=== PATIENT | female | born 1930 | race Caucasian/White ===

== ENCOUNTER 2017-09-05 01:38 | Emergency (ER) | payer MEDICARE ==
[2014-08-12 16:21] VITALS: Wt 64.4 kg
[~2017-09-05 01:38] MED LIST changes: -DOCU-416 PO; -LISI5TAB25 PO; -LOR5/325 PO; -LORA-1455 PO; -METH4TAB66 PO; -PRED-1 PO
--- NOTE | 2017-09-05 01:43 | ER Report ---
History and Physical Time Seen By MD: 01:41 HPI/ROS CHIEF COMPLAINT: right shoulder pain, right hip pain. HISTORY OF PRESENT ILLNESS: This is an 86 year old female. She has had pain in her shoulder for a couple of days now. Worsening pain with movement only. No pain when holding still. No injuries to the shoulder, no falls. No fevers or chills. No rashes. She has had pain in the joints off an on. 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 She has no other joint pain at this time. She had so much pain in the shoulder this morning that she could not get off of the toilet this morning. She denies chest pain or shortness of breath. No diarrhea or bowel problems. Allergies: Coded Allergies: Penicillins (Verified Allergy, Severe, SWELLING, 12/26/16) THROAT SWELLING Tetanus Vaccines and Toxoid (Verified Allergy, Intermediate, UNKNOWN, 12/26) influenza virus vaccine, specific (Verified Allergy, Intermediate, UNKNOWN , 12/26/16) pneumococcal vaccine (Verified Allergy, Intermediate, 12/26/16) N/V Home Meds Active Scripts Hydrocodone Bit/Acetaminophen (HYDROCODON-ACETAMINOPHEN 5-325) 1 Each Tablet, 1 EACH PO Q4H Y for PAIN, #8 TAB 0 Refills Prov:RONALD ROBLES MD 09/05/17 Methylprednisolone (METHYLPREDNISOLONE) 4 Mg Tab.ds.pk, 4 MG PO DIRECTED, #1 PACK 0 Refills Prov:RONALD ROBLES MD 09/05/17 Reported Medications Lisinopril (LISINOPRIL) 5 Mg Tablet, 5 MG PO QDAY, TAB 09/05/17 Docusate Sodium (COLACE) 100 Mg Capsule, 100 MG PO QDAY, CAPSULE 09/05/17 Cholecalciferol (Vitamin D3) (VITAMIN D3) 1,000 Unit Tablet, 1000 UNIT PO, TAB 09/10/16 Aspirin (ASPIRIN) 325 Mg Tablet, 325 MG PO DAILY, TAB 08/10/14 Levothyroxine Sodium (SYNTHROID) 50 Mcg Tablet, 50 MCG PO QDAY TAKE ONE TABLET BY MOUTH IN THE MORNING ON AN EMPTY STOMACH AT LEAST 30 MINUTES BEFORE FOOD 08/10/14 Discontinued Reported Medications [place]-3 Fatty Acids (FISH OIL) 300 Mg Capsule, 300 MG PO, CAPSULE 09/10/16 Atorvastatin Calcium (ATORVASTATIN CALCIUM) 40 Mg Tablet, 1 TAB PO QDAY, TAB TAKE ONE TABLET BY MOUTH ONCE A DAY AT BED TIME 08/10/14 Lisinopril (LISINOPRIL) 10 Mg Tablet, 10 MG PO QDAY 08/10/14 Discontinued Scripts Ondansetron (ZOFRAN ODT) 4 Mg Tab.rapdis, 4 MG PO Q6-8H Y for NAUSEA/VOMITING, # 15 TAB.KUSUM Prov:CIARA ACOSTA DO 12/26/16 Reviewed Nurses Notes: Yes Hx Smoking: No Smoking Status: Never Smoker Hx Substance Use Disorder: No Hx Alcohol Use: No Constitutional Vital Sign - Last 24 Hours 09/05/17 09/05/17 09/05/17 09/05/17 01:40 01:42 01:45 02:00 Temp 98.3 Pulse 100 Resp 18 B/P (MAP) 121/74 (90) 121/74 145/80 (101) 142/82 (102) Pulse Ox 90 O2 Delivery Room Air 09/05/17 09/05/17 09/05/17 09/05/17 02:23 02:30 02:38 02:53 Pulse 94 92 93 B/P (MAP) 145/70 (95) Pulse Ox 88 90 86 09/05/17 03:00 B/P (MAP) 142/76 (98) Physical Exam General Appearance: The patient is alert. No acute distress. Eyes: Pupils are equal, round. No pallor, injection or icterus. ENT: Mucous membranes are moist. Normal oral mucosa. Posterior oropharynx is normal. Neck: Supple and non tender. Respiratory: Lungs are clear to auscultation. Cardiovascular: Regular rate and rhythm. No murmurs, gallops or rubs. Normal capillary refill. Gastrointestinal: Abdomen is soft and non tender. Nondistended. Normal active bowel sounds. Neurological: Alert and oriented x3. No focal neurologic deficits Skin: Warm and dry. No rashes. Musculoskeletal: Right shoulder with pain with active and passive range of motion. Pain over the anterior shoulder, no pain with posterior palpation. No pain on clavicle. No pain with palpation of the humerus. Positive Neers and Phelps signs, with rotation. She has minimal pain in the right hip with movement, but is mild. Unable to reproduce pain with palpation of the hip. DIFFERENTIAL DIAGNOSIS: After history and physical exam, differential diagnosis was considered for pain in the shoulder and hip on the right without signs of injury at this time. Will check for cardiac causes, infectious causes and inflammatory causes. By exam the shoulder appears to be rotator cuff tendonitis and hip sounds more chronic. Medical Decision Making Data Points Result Diagram: 09/05/1711909/05/17 0120 Laboratory Hematology Test 09/05/17 01:20 Red Blood Count 4.87 M/uL (4.17-5.56) Mean Corpuscular Volume 91.3 fL (80.0-96.0) Mean Corpuscular Hemoglobin 31.2 pg (26.0-33.0) Mean Corpuscular Hemoglobin Concent 34.2 g/dL (32.0-36.0) Red Cell Distribution Width 12.7 % (11.5-14.5) Mean Platelet Volume 6.9 fL (7.2-11.1) Neutrophils (%) (Auto) 61.7 % (39.4-72.5) Lymphocytes (%) (Auto) 29.9 % (17.6-49.6) Monocytes (%) (Auto) 5.9 % (4.1-12.4) Eosinophils (%) (Auto) 1.6 % (0.4-6.7) Basophils (%) (Auto) 0.9 % (0.3-1.4) Nucleated RBC Relative Count (auto) 0.0 /100WBC Neutrophils # (Auto) 6.4 K/uL (2.0-7.4) Lymphocytes # (Auto) 3.1 K/uL (1.3-3.6) Monocytes # (Auto) 0.6 K/uL (0.3-1.0) Eosinophils # (Auto) 0.2 K/uL (0.0-0.5) Basophils # (Auto) 0.1 K/uL (0.0-0.1) Nucleated RBC Absolute Count (auto) 0.01 K/uL Erythrocyte Sedimentation Rate 59 mm/HOUR (0-30) Sodium Level 140 mmol/L (137-145) Potassium Level 4.0 mmol/L (3.5-5.0) Chloride Level 102 mmol/L (98-107) Carbon Dioxide Level 26 mmol/L (22-31) Blood Urea Nitrogen 28 mg/dl (7-18) Creatinine 1.60 mg/dl (0.52-1.04) Glomerular Filtration Rate Calc 30.6 Random Glucose 109 mg/dl (75-110) Calcium Level 9.1 mg/dl (8.4-10.2) Total Bilirubin 0.5 mg/dl (0.2-1.3) Aspartate Amino Transf (AST/SGOT) 19 U/L (0-35) Alanine Aminotransferase (ALT/SGPT) 22 U/L (0-56) Alkaline Phosphatase 80 U/L (0-126) Troponin I < 0.012 ng/ml C-Reactive Protein 4.0 mg/dl (<1.0) Total Protein 7.1 gm/dl (6.3-8.2) Albumin 3.6 g/dl (3.5-5.0) Chemistry Test 09/05/17 01:20 White Blood Count 10.3 k/uL (4.5-11.0) Red Blood Count 4.87 M/uL (4.17-5.56) Hemoglobin 15.2 g/dL (12.0-16.0) Hematocrit 44.5 % (34.0-47.0) Mean Corpuscular Volume 91.3 fL (80.0-96.0) Mean Corpuscular Hemoglobin 31.2 pg (26.0-33.0) Mean Corpuscular Hemoglobin Concent 34.2 g/dL (32.0-36.0) Red Cell Distribution Width 12.7 % (11.5-14.5) Platelet Count 372 K/uL (150-450) Mean Platelet Volume 6.9 fL (7.2-11.1) Neutrophils (%) (Auto) 61.7 % (39.4-72.5) Lymphocytes (%) (Auto) 29.9 % (17.6-49.6) Monocytes (%) (Auto) 5.9 % (4.1-12.4) Eosinophils (%) (Auto) 1.6 % (0.4-6.7) Basophils (%) (Auto) 0.9 % (0.3-1.4) Nucleated RBC Relative Count (auto) 0.0 /100WBC Neutrophils # (Auto) 6.4 K/uL (2.0-7.4) Lymphocytes # (Auto) 3.1 K/uL (1.3-3.6) Monocytes # (Auto) 0.6 K/uL (0.3-1.0) Eosinophils # (Auto) 0.2 K/uL (0.0-0.5) Basophils # (Auto) 0.1 K/uL (0.0-0.1) Nucleated RBC Absolute Count (auto) 0.01 K/uL Erythrocyte Sedimentation Rate 59 mm/HOUR (0-30) Glomerular Filtration Rate Calc 30.6 Calcium Level 9.1 mg/dl (8.4-10.2) Total Bilirubin 0.5 mg/dl (0.2-1.3) Aspartate Amino Transf (AST/SGOT) 19 U/L (0-35) Alanine Aminotransferase (ALT/SGPT) 22 U/L (0-56) Alkaline Phosphatase 80 U/L (0-126) Troponin I < 0.012 ng/ml C-Reactive Protein 4.0 mg/dl (<1.0) Total Protein 7.1 gm/dl (6.3-8.2) Albumin 3.6 g/dl (3.5-5.0) EKG/Imaging Imaging INDICATION: hip and shoulder pain EXAM DATE: 09/05/2017 2:03 AM COMPARISON: 03/14/2015. FINDINGS: AP view the pelvis with lateral view of the right hip. Mineralization is low. No acute alignment abnormality or fracture. Mild right hip osteoarthrosis. Incompletely imaged left hip prosthesis. 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 Soft tissues are unremarkable. IMPRESSION: No acute osseous abnormality of the pelvis and right hip. Report Dictated By: Benny Slade MD at 09/05/2017 2:38 AM INDICATION: hip and shoulder pain EXAM DATE: 09/05/2017 2:03 AM COMPARISON: None. FINDINGS: 3 views of the right shoulder. Mineralization is low. No acute alignment abnormality or fracture. Mild osteoarthrosis. Soft tissues are unremarkable. IMPRESSION: No acute osseous abnormality of the right shoulder. Report Dictated By: Benny Slade MD at 09/05/2017 2:37 AM ED Course/Re-evaluation ED Course Labs showed elevated ESR and CRP, but normal CMP and CBC other than mild renal insufficiency which appears chronic on trending the labs. No problems noted on imaging as noted above. Will begin Medrol dose pack and have her follow-up with her PCP and consider further evaluation by orthopedic surgery. Gave a small prescription for Lortab to help with pain while the steroid is being started. Mild renal insufficiency present, so recommended against using Ibuprofen or NSAIDs at this time. Reiterated need for follow-up within the next 1-2 weeks. Decision to Disposition Date: September 05, 2017 Decision to Disposition Time: 03:11 Depart Departure Latest Vital Signs Vital Signs Date Time Temp Pulse Resp B/P (MAP) Pulse Ox O2 Delivery O2 Flow Rate FiO2 09/05/17 03:00 142/76 (98) 09/05/17 02:53 93 86 09/05/17 01:42 98.3 18 Room Air Impression: Primary Impression: Rotator cuff tendinitis Additional Impression: Hip pain Condition: Improved Disposition: HOME OR SELF-CARE Referrals: MIL LI (PCP) New Scripts Hydrocodone Bit/Acetaminophen (HYDROCODON-ACETAMINOPHEN 5-325) 1 Each Tablet 1 EACH PO Q4H Y for PAIN, #8 TAB 0 Refills Prov: RONALD ROBLES MD 09/05/17 Methylprednisolone (METHYLPREDNISOLONE) 4 Mg Tab.ds.pk 4 MG PO DIRECTED, #1 PACK 0 Refills Prov: RONALD ROBLES MD 09/05/17 Patient Instructions: Rotator Cuff Tendinitis (ED), Tendinitis (ED) Additional Instructions: We would like to have you follow-up with your regular provider in the next 1-2 weeks. Increase fluid intake. Gentle range of motion of the shoulder. Take the Medrol Dosepack over the next 6 days. Take Lortab 5/325, 1/2 to 1 tablet every 4 hours as needed for severe pain. No Ibuprofen until done with the Medrol. Problem Qualifiers Primary Impression: Rotator cuff tendinitis Laterality: right Qualified Codes: M75.81 - Other shoulder lesions, right shoulder Additional Impression: Hip pain Laterality: right Qualified Codes: M25.551 - Pain in right hip RONALD ROBLES MD September 05, 2017 01:43
[2017-09-05 02:17] LABS: PLATELET COUNT, AUTOMATED 372 K/uL (150-450)
--- NOTE | 2017-09-05 02:28 | EKG ---
FACILITY: [facility] - [place] PATIENT NAME: MONTY BYERS : [id number] MR: [id number] V: [id number] EXAM DATE: ORDERING PHYSICIAN: RONALD ROBLES TECHNOLOGIST: KAREN Test Reason : SHOULDER PAIN Blood Pressure : / mmHG Vent. Rate : 088 BPM Atrial Rate : 088 BPM P-R Int : 120 ms QRS Dur : 072 ms QT Int : 348 ms P-R-T Axes : 010 062 073 degrees QTc Int : 421 ms Sinus rhythm with sinus arrhythmia Low voltage QRS Septal infarct , age undetermined When compared with ECG of 10-SEP-2016 18:35, Previous ECG has undetermined rhythm, needs review QRS voltage has decreased Septal infarct is now present Nonspecific T wave abnormality now evident in Anterior leads Confirmed by MAYCOL RICH ([id number]) on 09/05/2017 6:34:51 AM Referred By: Confirmed By:MAYCOL RICH
--- NOTE | 2017-09-05 02:43 | RADIOLOGY IMAGING REPORT ---
FACILITY: [facility] - [place] PATIENT NAME: Maren Salamanca : 1930 MR: [id number] V: [id number] EXAM DATE: ORDERING PHYSICIAN: RONALD ROBLES TECHNOLOGIST: Location: [facility] - [place] Patient: Maren Salamanca : 1930 Visit/Account:[id number] Date of Sevice: 09/05/2017 INDICATION: hip and shoulder pain EXAM DATE: 09/05/2017 2:03 AM COMPARISON: None. FINDINGS: 3 views of the right shoulder. Mineralization is low. No acute alignment abnormality or fracture. M ild osteoarthrosis. Soft tissues are unremarkable. IMPRESSION: No acute osseous abnormality of the right shoulder. Report Dictated By: Benny Slade MD at 09/05/2017 2:37 AM Report E-Signed By: Benny Slade MD at 09/05/2017 2:38 AM WSN:[id number]
--- NOTE | 2017-09-05 02:44 | RADIOLOGY IMAGING REPORT ---
[place] [facility] [place] NAME: Maren Salamanca : 1930 MR: [id number] V: [id number] EXAM DATE: ORDERING PHYSICIAN: RONALD ROBLES TECHNOLOGIST: Location: [facility] Patient: Maren Salamanca : 1930 Visit/Account:[id number] Date of Sevice: 09/05/2017 INDICATION: hip and shoulder pain EXAM DATE: 09/05/2017 2:03 AM COMPARISON: 03/14/2015. FINDINGS: AP view the pelvis with lateral view of the right hip. Mineralization is low. No acute alignment abno rmality or fracture. Mild right hip osteoarthrosis. Incompletely imaged left hip prosthesis. Moder ate to severe spondylosis in the lumbar spine. Soft tissues are unremarkable. IMPRESSION: No acute osseous abnormality of the pelvis and right hip. Report Dictated By: Benny Slade MD at 09/05/2017 2:38 AM Report E-Signed By: Benny Slade MD at 09/05/2017 2:40 AM WSN:[id number]
[2017-09-05] MEDS ORDERED: LISI5TAB25 PO (02:45)
[2017-09-05] MEDS ORDERED: DOCU-416 PO (02:45)
[2017-09-05 03:00] VITALS: BP 142/76
[2017-09-05] MEDS ORDERED: METH4TAB66 PO (03:13)
[2017-09-05] MEDS ORDERED: LOR5/325 PO (03:13)
[2017-09-05] MEDS ORDERED: APAP/HYDROCODONE 325/5 TAB PO ONE (03:15)
[2017-09-05] MEDS ORDERED: ACET/HYDROC 5/325MG TH ER ONLY 2 TAB/BOTTLE PO ONE (03:15)
== END 2017-09-05 03:33 | disposition home or self-care (01) ==
LOC: ER 01:48
DX: M75.81 Other shoulder lesions, right shoulder (principal); M16.11 Unilateral primary osteoarthritis, right hip; Z96.641 Presence of right artificial hip joint; I49.9 Cardiac arrhythmia, unspecified
CPT/HCPCS: 73030; 73502; 84484; 85025; 85651; 86140; 93005; 99284; A9270; 82040; 82247; 82310; 82374; 82435; 82565; 82947; 84075; 84132; 84155; 84295; 84450; 84460; 84520

== ENCOUNTER → 2017-09-05 | Outpatient (CLI) | payer MEDICARE ==
[2014-08-12 16:21] VITALS: BMI 26.2
[~2017-09-05] MED LIST: ASPI-757 PO; ATOR40TA69 PO; ATR10 PO; CHOL10005 PO; DOCU-416 PO; HYDR-4309 PO; LEVO50TA80 PO; LISI-362 PO; LISI5TAB25 PO; LOR5/325 PO; LORA-1455 PO; METH4TAB66 PO; OMEG300C PO; ONDA4TAB PO; ONDA4TAB97 PO; PER PO; POLY17PO21 PO; PRED-1 PO; SULF-198 PO; THYROID PO; TRAM-420 PO
== END ==
LOC: AMB 01:17
PROVIDERS: ATTEND Nurse Practitioner
DX: M25.511 Pain in right shoulder (principal); M25.551 Pain in right hip
CPT/HCPCS: A0425; A0427

== ENCOUNTER 2017-09-11 00:41 | Emergency (ER) | payer MEDICARE ==
[2014-08-12 16:21] VITALS: Wt 64.4 kg
--- NOTE | 2017-09-11 00:37 | ER Report ---
History and Physical Time Seen By MD: 00:45 HPI/ROS CHIEF COMPLAINT: Neck and right shoulder pain HISTORY OF PRESENT ILLNESS: 86-year-old female brought in by EMS. Patient woke up to use the bathroom, she noted. There is severe pain in her right shoulder and right neck. Patient states she was unable to move her neck. Patient notes no numbness. Patient feels similar to the pain she had when she was here 6 days ago. She had extensive evaluation in the ER. Started on Medrol Dosepak. Which ended. I think she is having some rebound symptoms. Patient reports she has an appointment with her primary care tomorrow at 1:30 PM. Patient notes no numbness or weakness. REVIEW OF SYSTEMS: Respiratory: No cough, no dyspnea. Cardiovascular: No chest pain, no palpitations. Gastrointestinal: No vomiting, no abdominal pain. Musculoskeletal: As above Allergies: Coded Allergies: Penicillins (Verified Allergy, Severe, SWELLING, 12/26/16) THROAT SWELLING Tetanus Vaccines and Toxoid (Verified Allergy, Intermediate, UNKNOWN, 12/26) influenza virus vaccine, specific (Verified Allergy, Intermediate, UNKNOWN , 12/26/16) pneumococcal vaccine (Verified Allergy, Intermediate, 12/26/16) N/V Home Meds Active Scripts Lorazepam (ATIVAN) 0.5 Mg Tablet, 0.5 MG PO Q6-8H Y for muscle spasm relief, #15 Prov:VANESSA CHINCHILLA DO 09/11/17 Prednisone 10 Mg Tab (PREDNISONE 10 MG TAB) 10 Mg Tablet, 10 MG PO QDAY Y for inflammation reduction, #9 2 tabs daily for 3 days 1 tab daily for 3 days Prov:VANESSA CHINCHILLA DO 09/11/17 Hydrocodone Bit/Acetaminophen (HYDROCODON-ACETAMINOPHEN 5-325) 1 Each Tablet, 1 EACH PO Q4H Y for PAIN, #8 TAB 0 Refills Prov:RONALD ROBLES MD 09/05/17 Methylprednisolone (METHYLPREDNISOLONE) 4 Mg Tab.ds.pk, 4 MG PO DIRECTED, #1 PACK 0 Refills Prov:RONALD ROBLES MD 09/05/17 Reported Medications Lisinopril (LISINOPRIL) 5 Mg Tablet, 5 MG PO QDAY, TAB 09/05/17 Docusate Sodium (COLACE) 100 Mg Capsule, 100 MG PO QDAY, CAPSULE 5/23/18 Cholecalciferol (Vitamin D3) (VITAMIN D3) 1,000 Unit Tablet, 1000 UNIT PO, TAB 09/10/16 Aspirin (ASPIRIN) 325 Mg Tablet, 325 MG PO DAILY, TAB 08/10/14 Levothyroxine Sodium (SYNTHROID) 50 Mcg Tablet, 50 MCG PO QDAY TAKE ONE TABLET BY MOUTH IN THE MORNING ON AN EMPTY STOMACH AT LEAST 30 MINUTES BEFORE FOOD 08/10/14 Discontinued Reported Medications [place]-3 Fatty Acids (FISH OIL) 300 Mg Capsule, 300 MG PO, CAPSULE 09/10/16 Atorvastatin Calcium (ATORVASTATIN CALCIUM) 40 Mg Tablet, 1 TAB PO QDAY, TAB TAKE ONE TABLET BY MOUTH ONCE A DAY AT BED TIME 08/10/14 Lisinopril (LISINOPRIL) 10 Mg Tablet, 10 MG PO QDAY 08/10/14 Discontinued Scripts Ondansetron (ZOFRAN ODT) 4 Mg Tab.rapdis, 4 MG PO Q6-8H Y for NAUSEA/VOMITING, # 15 TAB.KUSUM Prov:CIARA ACOSTA DO 12/26/16 Reviewed Nurses Notes: Yes Old Medical Records Reviewed: Yes Hx Smoking: No Smoking Status: Never Smoker Hx Substance Use Disorder: No Hx Alcohol Use: No Constitutional Vital Sign - Last 24 Hours 09/11/17 09/11/17 09/11/17 09/11/17 00:44 00:46 00:56 01:00 Temp 98.4 Pulse 91 88 Resp 16 23 B/P (MAP) 128/77 128/77 (94) 133/68 (89) Pulse Ox 95 O2 Delivery Room Air 09/11/17 09/11/17 09/11/17 01:11 01:30 01:31 Pulse 92 86 B/P (MAP) 102/66 (78) Physical Exam General Appearance: The patient is alert, has no immediate need for airway protection and no current signs of toxicity. Vital signs stable, afebrile, pulse ox normal Eyes: Pupils equal and round no injection. Respiratory: Chest is non tender, lungs are clear to auscultation. Cardiac: regular rate and rhythm Gastrointestinal: Abdomen is soft and non tender, no masses, bowel sounds normal. Musculoskeletal: Neck: Neck is supple, there is tenderness of the right paraspinous muscles extending into the right trapezius. There is also tenderness of the right brachial plexus. Extremities have full range of motion and are non tender. Skin: No rashes or lesions. DIFFERENTIAL DIAGNOSIS: After history and physical exam differential diagnosis was considered for cervical strain, cervical spasm, brachial plexopathy, anxiety , tension headache Medical Decision Making ED Course/Re-evaluation ED Course Patient was admitted to an examination room. H&P was done. The dental diagnoses was considered. Patient with acute neck pain and spasm. She has a nonfocal neurologic examination. Patient was medicated with prednisone 20 mg, Ativan and a half milligram and Lovely 5/325 for pain. She refused any diagnostic testing. She has a follow-up with her primary care physician later today. She was recently seen here in the ER and had an extensive evaluation approximately 6 days ago. She finished a Medrol Dosepak. I suspect she is experiencing some component of steroid withdrawal. She will be placed on a low- dose prednisone taper 20 mg for 3 days, 10 mg for 3 days. She's given some Ativan to relax her muscle spasm. She has leftover Lovely at home to take for pain relief. She will likely need some physical therapy and further diagnostic evaluation as per her primary care provider. Decision to Disposition Date: September 11, 2017 Decision to Disposition Time: 01:12 Depart Departure Latest Vital Signs Vital Signs Date Time Temp Pulse Resp B/P (MAP) Pulse Ox O2 Delivery O2 Flow Rate FiO2 09/11/17 01:31 86 09/11/17 01:30 102/66 (78) 09/11/17 00:56 23 09/11/17 00:44 98.4 95 Room Air Impression: Primary Impression: Cervical paraspinal muscle spasm Additional Impression: Right shoulder pain Condition: Improved Disposition: HOME OR SELF-CARE Referrals: MIL LI (PCP) New Scripts Lorazepam (ATIVAN) 0.5 Mg Tablet 0.5 MG PO Q6-8H Y for muscle spasm relief, #15 Prov: VANESSA CHINCHILLA DO 09/11/17 Prednisone 10 Mg Tab (PREDNISONE 10 MG TAB) 10 Mg Tablet 10 MG PO QDAY Y for inflammation reduction, #9 2 tabs daily for 3 days 1 tab daily for 3 days Prov: VANESSA CHINCHILLA DO 09/11/17 Patient Instructions: Cervical Sprain (ED) Additional Instructions: Follow-up with primary care as planned at 1:30 Problem Qualifiers Additional Impression: Right shoulder pain Chronicity: acute Qualified Codes: M25.511 - Pain in right shoulder VANESSA CHINCHILLA DO September 11, 2017 00:37
[~2017-09-11 00:41] MED LIST changes: -LORA-1455 PO; -PRED-1 PO
[2017-09-11] MEDS ORDERED: predniSONE 20 MG TAB PO ONE (01:00)
[2017-09-11] MEDS ORDERED: APAP/HYDROCODONE 325/5 TAB PO ONE (01:00)
[2017-09-11] MEDS ORDERED: LORazepam 0.5 MG TAB PO ONE (01:00)
[2017-09-11] MEDS ORDERED: PRED-1 PO (01:20)
[2017-09-11] MEDS ORDERED: LORA-1455 PO (01:20)
[2017-09-11 01:30] VITALS: BP 102/66
== END 2017-09-11 01:38 | disposition home or self-care (01) ==
LOC: ER 00:42
DX: M62.838 Other muscle spasm (principal); M25.511 Pain in right shoulder
CPT/HCPCS: 99283; A9270; J7512

== ENCOUNTER → 2017-09-11 | Outpatient (CLI) | payer MEDICARE ==
[2014-08-12 16:21] VITALS: BMI 26.2
[~2017-09-11] MED LIST changes: +DOCU-416 PO; +LISI5TAB25 PO; +LOR5/325 PO; +LORA-1455 PO; +METH4TAB66 PO; +PRED-1 PO
== END ==
LOC: AMB 00:21
PROVIDERS: ATTEND Nurse Practitioner
DX: M54.2 Cervicalgia (principal); M25.511 Pain in right shoulder
CPT/HCPCS: A0425; A0429

== ENCOUNTER 2017-10-08 07:52 | Emergency (ER) | payer MEDICARE ==
[2014-08-12 16:21] VITALS: Wt 59.0 kg
[~2017-10-08 07:52] MED LIST changes: -CALC-521 PO; -NAPR220C12 PO; -PRED20TA6 PO
--- NOTE | 2017-10-08 07:54 | ER Report ---
History and Physical Time Seen By MD: 07:54 HPI/ROS CHIEF COMPLAINT: Right shoulder pain HISTORY OF PRESENT ILLNESS: Patient is an 86-year-old female who presents to the emergency department for evaluation of right shoulder pain. She has a prior history of impingement syndrome and has been treated in the emergency department this past year for similar episode. She denies any trauma or fall. She denies any fevers or chills. She denies chest pain or shortness of breath. Patient describes pain with abduction and internal rotation of the right shoulder. She has been taking Aleve 200 mg twice a day with moderate success however this morning when she woke up she was in severe pain. For this reason she presents to the emergency department for further evaluation. REVIEW OF SYSTEMS: Respiratory: No cough, no dyspnea. Cardiovascular: No chest pain, no palpitations. Gastrointestinal: No vomiting, no abdominal pain. Musculoskeletal: No back pain. Right shoulder pain Allergies: Coded Allergies: Penicillins (Verified Allergy, Severe, SWELLING, 10/08/17) THROAT SWELLING Tetanus Vaccines and Toxoid (Verified Allergy, Intermediate, UNKNOWN, 10/08) influenza virus vaccine, specific (Verified Allergy, Intermediate, UNKNOWN , 10/08/17) pneumococcal vaccine (Verified Allergy, Intermediate, 10/08/17) N/V Home Meds Active Scripts Hydrocodone Bit/Acetaminophen (HYDROCODON-ACETAMINOPHEN 5-325) 1 Each Tablet, 1 EACH PO Q6-8H Y for PAIN, #12 TAB 0 Refills TAKE ONE TABLET BY MOUTH EVERY 4-6 HOURS NEEDED FOR PAIN Prov:YUKI GARCIA MD 10/08/17 Prednisone (PREDNISONE) 20 Mg Tablet, 20 MG PO QDAY, #6 TAB 0 Refills 20 mg PO QD for 3 days; then 10 mg (1/2 tab) PO QD for 3 days; then 10 mg (1/2 tab) PO every other day for three doses. Prov:YUKI GARCIA MD 10/08/17 Lorazepam (ATIVAN) 0.5 Mg Tablet, 0.5 MG PO Q6-8H Y for muscle spasm relief, #15 Prov:VANESSA CHINCHILLA DO 09/11/17 Hydrocodone Bit/Acetaminophen (HYDROCODON-ACETAMINOPHEN 5-325) 1 Each Tablet, 1 EACH PO Q4H Y for PAIN, #8 TAB 0 Refills Prov:RONALD ROBLES MD 09/05/17 Reported Medications Naproxen Sodium (ALEVE) 220 Mg Capsule, 220 MG PO QDAY, CAPSULE 10/08/17 Calcium Carbonate (TUMS) 300 Mg Tab.chew, 300 MG PO, TAB.CHEW 10/08/17 Lisinopril (LISINOPRIL) 5 Mg Tablet, 5 MG PO QDAY, TAB 09/05/17 Docusate Sodium (COLACE) 100 Mg Capsule, 100 MG PO QDAY, CAPSULE 09/05/17 Cholecalciferol (Vitamin D3) (VITAMIN D3) 1,000 Unit Tablet, 1000 UNIT PO, TAB 09/10/16 Aspirin (ASPIRIN) 325 Mg Tablet, 325 MG PO DAILY, TAB 08/10/14 Levothyroxine Sodium (SYNTHROID) 50 Mcg Tablet, 50 MCG PO QDAY TAKE ONE TABLET BY MOUTH IN THE MORNING ON AN EMPTY STOMACH AT LEAST 30 MINUTES BEFORE FOOD 08/10/14 Discontinued Scripts Prednisone 10 Mg Tab (PREDNISONE 10 MG TAB) 10 Mg Tablet, 10 MG PO QDAY Y for inflammation reduction, #9 2 tabs daily for 3 days 1 tab daily for 3 days Prov:VANESSA CHINCHILLA DO 09/11/17 Methylprednisolone (METHYLPREDNISOLONE) 4 Mg Tab.ds.pk, 4 MG PO DIRECTED, #1 PACK 0 Refills Prov:RONALD ROBLES MD 09/05/17 Past Medical/Surgical History Past medical history for right neck and shoulder pain, hypertension, constipation, osteopenia, hypothyroidism, hypercholesterolemia. Hx Smoking: No Smoking Status: Never Smoker Hx Substance Use Disorder: No Hx Alcohol Use: No Constitutional Vital Sign - Last 24 Hours 10/08/17 10/08/17 10/08/17 10/08/17 07:52 07:56 08:00 08:30 Temp 96.7 Pulse 97 94 Resp 20 B/P (MAP) 110/74 (86) 112/86 (95) Pulse Ox 88 94 O2 Delivery Room Air Physical Exam General Appearance: The patient is alert, has no immediate need for airway protection and no current signs of toxicity. Eyes: Pupils equal and round no injection. Respiratory: Chest is non tender, lungs are clear to auscultation. Cardiac: regular rate and rhythm Gastrointestinal: Abdomen is soft and non tender, no masses, bowel sounds normal. Musculoskeletal: Neck: Neck is supple and non tender. Patient has a positive Neer and Phelps test. Muscle mass to the upper extremities seems equal Patient has painful passive range of motion with abduction and internal rotation of the shoulder Skin: No rashes or lesions. Medical Decision Making ED Course/Re-evaluation ED Course 10/08/2017 8:24:52 am patient is requesting no invasive seizures or radiological studies. Plan at this time will be to repeat her pain regime that she was prescribed on 09/11/2017 which was successful. We will provide a short course of oral pain medicine and muscle relaxants and also do a prednisone taper. Decision to Disposition Date: Oct 08, 2017 Decision to Disposition Time: 08:34 Depart Departure Latest Vital Signs Vital Signs Date Time Temp Pulse Resp B/P (MAP) Pulse Ox O2 Delivery O2 Flow Rate FiO2 10/08/17 08:30 112/86 (95) 10/08/17 07:56 96.7 94 20 94 Room Air Impression: Primary Impression: Shoulder impingement syndrome Condition: Improved Disposition: HOME OR SELF-CARE Referrals: [facility] (PCP) 2 Days If symptoms persist [facility] Call to schedule an appointment for evaluation of your right shoulder pain. New Scripts Hydrocodone Bit/Acetaminophen (HYDROCODON-ACETAMINOPHEN 5-325) 1 Each Tablet 1 EACH PO Q6-8H Y for PAIN, #12 TAB 0 Refills TAKE ONE TABLET BY MOUTH EVERY 4-6 HOURS NEEDED FOR PAIN Prov: YUKI GARCIA MD 10/08/17 Prednisone (PREDNISONE) 20 Mg Tablet 20 MG PO QDAY, #6 TAB 0 Refills 20 mg PO QD for 3 days; then 10 mg (1/2 tab) PO QD for 3 days; then 10 mg (1/2 tab) PO every other day for three doses. Prov: YUKI GARCIA MD 10/08/17 Departure Forms: ER Transition Record, Medications Reconciliation, Patient Portal Information Patient Instructions: Exercises for Internal and External Shoulder Rotation ( GEN), Exercises for Shoulder Abduction and Adduction (GEN), Shoulder Pain (ED) Problem Qualifiers Primary Impression: Shoulder impingement syndrome Laterality: right Qualified Codes: M75.41 - Impingement syndrome of right shoulder YUKI GARCIA MD Oct 08, 2017 07:54
[2017-10-08] MEDS ORDERED: CALC-521 PO (08:08)
[2017-10-08] MEDS ORDERED: NAPR220C12 PO (08:08)
[2017-10-08] MEDS ORDERED: APAP/HYDROCODONE 325/5 TAB PO ONE (08:25)
[2017-10-08] MEDS ORDERED: predniSONE 20 MG TAB PO ONE (08:25)
[2017-10-08] MEDS ORDERED: LORazepam 0.5 MG TAB PO ONE (08:25)
[2017-10-08 08:30] VITALS: BP 112/86
[2017-10-08] MEDS ORDERED: PRED20TA6 PO (08:31)
[2017-10-08] MEDS ORDERED: LOR5/325 PO (08:31)
== END 2017-10-08 09:24 | disposition home or self-care (01) ==
LOC: ER 07:54
DX: M75.41 Impingement syndrome of right shoulder (principal)
CPT/HCPCS: 99283; A9270; J7512

== ENCOUNTER → 2017-10-08 | Outpatient (CLI) | payer MEDICARE ==
[2014-08-12 16:21] VITALS: BMI 26.2
[~2017-10-08] MED LIST changes: +CALC-521 PO; +LORA-1455 PO; +NAPR220C12 PO; +PRED-1 PO; +PRED20TA6 PO
== END ==
LOC: AMB 07:22
PROVIDERS: ATTEND Nurse Practitioner
DX: M75.91 Shoulder lesion, unspecified, right shoulder (principal)
CPT/HCPCS: A0425; A0429

== ENCOUNTER 2017-10-27 02:30 | Emergency (ER) | payer MEDICARE ==
[2014-08-12 16:21] VITALS: Wt 59.0 kg
--- NOTE | 2017-10-27 02:41 | ER Report ---
History and Physical Time Seen By MD: 02:37 Hx. of Stated Complaint: PAIN ALL OVER, MOSTLY IN ELBOWS. HAD AN MRI YESTERDAY HPI/ROS CHIEF COMPLAINT: Right arm pain, pain all over HISTORY OF PRESENT ILLNESS: 86-year-old female brought in by ambulance from home complaining of right elbow and arm pain. Patient states she took some hydrocodone's earlier without improvement of her pain. Patient was seen by Dr. Espinal. He ordered an MRI of her cervical spine. She rule out pain related to her neck. Patient also has a component of anxiety. Patient has a history of arthritis. Patient notes pain in her right elbow with arm movement. She denies shoulder or wrist pain. REVIEW OF SYSTEMS: Respiratory: No cough, no dyspnea. Cardiovascular: No chest pain, no palpitations. Gastrointestinal: No vomiting, no abdominal pain. Musculoskeletal: No back pain. Allergies: Coded Allergies: Penicillins (Verified Allergy, Severe, SWELLING, 10/27/17) THROAT SWELLING Tetanus Vaccines and Toxoid (Verified Allergy, Intermediate, UNKNOWN, 10/27) influenza virus vaccine, specific (Verified Allergy, Intermediate, UNKNOWN , 10/27/17) pneumococcal vaccine (Verified Allergy, Intermediate, 10/27/17) N/V Home Meds Active Scripts Hydrocodone Bit/Acetaminophen (HYDROCODON-ACETAMINOPHEN 5-325) 1 Each Tablet, 1 EACH PO Q6-8H Y for PAIN, #12 TAB 0 Refills TAKE ONE TABLET BY MOUTH EVERY 4-6 HOURS NEEDED FOR PAIN Prov:YUKI GARCIA MD 10/08/17 Prednisone (PREDNISONE) 20 Mg Tablet, 20 MG PO QDAY, #6 TAB 0 Refills 20 mg PO QD for 3 days; then 10 mg (1/2 tab) PO QD for 3 days; then 10 mg (1/2 tab) PO every other day for three doses. Prov:YUKI GARCIA MD 10/08/17 Lorazepam (ATIVAN) 0.5 Mg Tablet, 0.5 MG PO Q6-8H Y for muscle spasm relief, #15 Prov:VANESSA CHINCHILLA DO 09/11/17 Hydrocodone Bit/Acetaminophen (HYDROCODON-ACETAMINOPHEN 5-325) 1 Each Tablet, 1 EACH PO Q4H Y for PAIN, #8 TAB 0 Refills Prov:RONALD ROBLES MD 09/05/17 Reported Medications Naproxen Sodium (ALEVE) 220 Mg Capsule, 220 MG PO QDAY, CAPSULE 10/08/17 Calcium Carbonate (TUMS) 300 Mg Tab.chew, 300 MG PO, TAB.CHEW 10/08/17 Lisinopril (LISINOPRIL) 5 Mg Tablet, 5 MG PO QDAY, TAB 09/05/17 Docusate Sodium (COLACE) 100 Mg Capsule, 100 MG PO QDAY, CAPSULE 09/05/17 Cholecalciferol (Vitamin D3) (VITAMIN D3) 1,000 Unit Tablet, 1000 UNIT PO, TAB 09/10/16 Aspirin (ASPIRIN) 325 Mg Tablet, 325 MG PO DAILY, TAB 08/10/14 Levothyroxine Sodium (SYNTHROID) 50 Mcg Tablet, 50 MCG PO QDAY TAKE ONE TABLET BY MOUTH IN THE MORNING ON AN EMPTY STOMACH AT LEAST 30 MINUTES BEFORE FOOD 08/10/14 Hx Smoking: No Smoking Status: Never Smoker Hx Substance Use Disorder: No Hx Alcohol Use: No Constitutional Vital Sign - Last 24 Hours 10/27/17 10/27/17 10/27/17 10/27/17 02:33 02:33 02:45 03:00 Temp 99.5 Pulse 93 89 ??? Resp 20 B/P (MAP) 117/84 117/84 (95) 117/78 (91) Pulse Ox 93 88 85 O2 Delivery Room Air 10/27/17 10/27/17 10/27/17 10/27/17 03:15 03:30 03:35 03:50 Pulse ? B/P (MAP) 131/96 (108) 10/27/17 10/27/17 10/27/17 10/27/17 04:00 04:05 04:20 04:30 Pulse ? B/P (MAP) 135/75 (95) 135/75 (95) 10/27/17 10/27/17 10/27/17 10/27/17 04:35 04:40 04:55 05:00 Pulse ? B/P (MAP) 120/91 (101) Physical Exam General Appearance: The patient is alert, has no immediate need for airway protection and no current signs of toxicity.. Vital signs stable, afebrile, pulse ox normal Eyes: Pupils equal and round no injection. Respiratory: Chest is non tender, lungs are clear to auscultation. Cardiac: regular rate and rhythm Gastrointestinal: Abdomen is soft and non tender, no masses, bowel sounds normal. Musculoskeletal: Neck: Neck is supple and non tender. No tenderness in the midline Extremities have full range of motion and are non tender. There is no swelling or redness. Patient of the elbow joint reveals no joint effusion. Patient has pain on movement of the elbow. Skin: No rashes or lesions. DIFFERENTIAL DIAGNOSIS: After history and physical exam differential diagnosis was considered for arm pain, radiculopathy, arthritis, bursitis, tendinitis Medical Decision Making EKG/Imaging Imaging X-ray: Right elbow, 3 views was obtained. I viewed the images myself on the PACS system. My interpretation of the images is: No fracture no dislocation or malalignment, no evidence of degenerative arthritis. The radiologist interpretation had no clinically significant variation from this interpretation. ED Course/Re-evaluation ED Course Patient was admitted to an examination room. H&P was done. The differential diagnosis was considered. On clinical examination. Patient has a neurovascularly intact right arm. There is no evidence of pain on palpation of the hands and wrists. There is some discomfort with manipulation of the elbow. Passive range of motion. There is no joint effusion. Diagnostic x-rays are unremarkable. Patient shoulder is unremarkable. Palpation of her neck reveals no tenderness or pain. Patient started on Ativan and hydrocodone for her pain relief. Patient previously was placed on a Medrol Dosepak for arthritis treatment. That seemed to help as well. There were some concerns that she may have withdrawal from that. On current presentation. Patient's pain is different than her previous pain. There is a suspicion that she may have degenerative disc disease of her cervical spine. MRIs been performed. She does not know the results yet. Patient advised to continue taking her hydrocodone and Ativan and follow-up with her primary care provider and Dr. Espinal orthopedics. I am beginning to have a suspicion that she is having psychosomatic pain. There appears to be some secondary gain involved here. Patient has frequent ER visits lately. Decision to Disposition Date: Oct 27, 2017 Decision to Disposition Time: 04:45 Depart Departure Latest Vital Signs Vital Signs Date Time Temp Pulse Resp B/P (MAP) Pulse Ox O2 Delivery O2 Flow Rate FiO2 10/27/17 05:00 120/91 (101) 10/27/17 04:55 ??? 10/27/17 03:00 85 10/27/17 02:33 99.5 20 Room Air Impression: Primary Impression: Right arm pain Additional Impressions: Chronic right shoulder pain Anxiety Condition: Improved Disposition: HOME OR SELF-CARE Referrals: [facility] (PCP) Patient Instructions: Arm Pain (ED) Additional Instructions: Use your pain medicine as necessary for pain relief. Follow-up with your primary care physician and Dr. Espinal within one week Problem Qualifiers VANESSA CHINCHILLA DO Oct 27, 2017 02:41
--- NOTE | 2017-10-27 03:50 | RADIOLOGY IMAGING REPORT ---
FACILITY: [facility] - [place] PATIENT NAME: Maren Salamanca : 1930 MR: [id number] V: [id number] EXAM DATE: ORDERING PHYSICIAN: VANESSA CHINCHILLA TECHNOLOGIST: Location: [facility] [place] Patient: Maren Salamanca : 1930 Visit/Account:[id number] Date of Sevice: 10/27/2017 INDICATION: Pain. EXAM DATE: 10/27/2017 3:04 AM COMPARISON: None. FINDINGS: 3 views right elbow. Mineralization is low. No acute alignment abnormality or fracture. Soft tissues are unremarkable. IMPRESSION: No acute abnormality of the right elbow. Report Dictated By: Benny Slade MD at 10/27/2017 3:45 AM Report E-Signed By: Benny Slade MD at 10/27/2017 3:46 AM WSN:[id number]
[2017-10-27 05:00] VITALS: BP 120/91
== END 2017-10-27 05:06 | disposition home or self-care (01) ==
LOC: ER 02:32
DX: M79.601 Pain in right arm (principal); M25.511 Pain in right shoulder; G89.29 Other chronic pain; F41.9 Anxiety disorder, unspecified
CPT/HCPCS: 99283

== ENCOUNTER → 2017-10-27 | Outpatient (CLI) | payer MEDICARE ==
[2014-08-12 16:21] VITALS: BMI 26.2
[~2017-10-27] MED LIST changes: +CALC-521 PO; +NAPR220C12 PO; +PRED20TA6 PO
== END ==
LOC: AMB 02:08
PROVIDERS: ATTEND Nurse Practitioner
DX: G89.29 Other chronic pain (principal)
CPT/HCPCS: A0425; A0429

== ENCOUNTER 2017-11-10 05:18 | Observation (INO) | payer MEDICARE ==
[~2017-11-10] VITALS: Ht 160 cm; Wt 59.5 kg
[~2017-11-10 05:18] MED LIST changes: -ACET-1966 PO; -GABA-549 PO; -IBUP-136 PO; -PRE5 PO
[2017-11-10] MEDS ORDERED: GABA-549 PO (05:30)
--- NOTE | 2017-11-10 05:31 | ER Report ---
History and Physical Time Seen By MD: 05:27 Hx. of Stated Complaint: PT FELL WHILE TRYING TO USE THE BATHROOM. PT STATES SHE FELL RIGHT DOWN ON HER BUTT. DENIES HITTING HER HEAD. PT REPORTS PAIN 7/10 IN HER ARMS, LEGS, AND BACK. (YAIR LOYA MD) HPI/ROS CHIEF COMPLAINT: fall at home, weakness HISTORY OF PRESENT ILLNESS: This is an 87 year old female. She was brought to the ER by EMS this morning. She has been weak now for weeks. seemed worse today. Diffuse pain as well, mainly in the neck and shoulder. Has seen orthopedic surgery and they have just started her with physical therapy. She saw the home therapist this week and they are going to be starting next week. Having worsening weakness in shoulders and arms. Weakness in leg this morning when she got up to go to the bathroom and fell down onto her bottom. Now with worsening pain in the back and also with her neck pain. Also more pain in the hip. She was unable to get up off of the floor. She has been started on Gabapentin 100mg tablets, started with one a day and has increased now to two a day. Also has had some steroid treatments with recent pain, which helps, but the pain comes right back once the steroids are done. She also has some prescriptions for Hydrocodone/APAP recently for this. No problems with bowels. Eating well and no nausea. She has been urinating well and no dysuria or frequency. (YAIR LOYA MD) Allergies: Coded Allergies: Penicillins (Verified Allergy, Severe, SWELLING, 10/27/17) THROAT SWELLING Tetanus Vaccines and Toxoid (Verified Allergy, Intermediate, UNKNOWN, 10/27) influenza virus vaccine, specific (Verified Allergy, Intermediate, UNKNOWN , 10/27/17) pneumococcal vaccine (Verified Allergy, Intermediate, 10/27/17) N/V Home Meds Active Scripts Hydrocodone Bit/Acetaminophen (HYDROCODON-ACETAMINOPHEN 5-325) 1 Each Tablet, 1 EACH PO Q6-8H Y for PAIN, #12 TAB 0 Refills TAKE ONE TABLET BY MOUTH EVERY 4-6 HOURS NEEDED FOR PAIN Prov:YUKI GARCIA MD 10/08/17 Lorazepam (ATIVAN) 0.5 Mg Tablet, 0.5 MG PO Q6-8H Y for muscle spasm relief, #15 Prov:VANESSA CHINCHILLA DO 09/11/17 Reported Medications Ibuprofen (IBUPROFEN) 200 Mg Capsule, 1 CAP PO Q6H, CAPSULE 11/10/17 Acetaminophen (TYLENOL) 325 Mg Tablet, 2 TAB PO Q6H Y for PAIN, TAB 11/10/17 Gabapentin (GABAPENTIN) 300 Mg Capsule, 100 MG PO TID, CAPSULE 11/10/17 Naproxen Sodium (ALEVE) 220 Mg Capsule, 220 MG PO QDAY, CAPSULE 10/08/17 Calcium Carbonate (TUMS) 300 Mg Tab.chew, 300 MG PO HS, TAB.CHEW 10/08/17 Lisinopril (LISINOPRIL) 5 Mg Tablet, 5 MG PO QDAY, TAB 09/05/17 Docusate Sodium (COLACE) 100 Mg Capsule, 100 MG PO QDAY, CAPSULE 09/05/17 Cholecalciferol (Vitamin D3) (VITAMIN D3) 1,000 Unit Tablet, 2 TAB PO QAM, TAB 09/10/16 Aspirin (ASPIRIN) 325 Mg Tablet, 325 MG PO DAILY, TAB 08/10/14 Levothyroxine Sodium (SYNTHROID) 50 Mcg Tablet, 50 MCG PO QDAY TAKE ONE TABLET BY MOUTH IN THE MORNING ON AN EMPTY STOMACH AT LEAST 30 MINUTES BEFORE FOOD 08/10/14 Discontinued Scripts Prednisone (PREDNISONE) 20 Mg Tablet, 20 MG PO QDAY, #6 TAB 0 Refills 20 mg PO QD for 3 days; then 10 mg (1/2 tab) PO QD for 3 days; then 10 mg (1/2 tab) PO every other day for three doses. Prov:YUKI GARCIA MD 10/08/17 Hydrocodone Bit/Acetaminophen (HYDROCODON-ACETAMINOPHEN 5-325) 1 Each Tablet, 1 EACH PO Q4H Y for PAIN, #8 TAB 0 Refills Prov:YAIR LOYA MD 09/05/17 Reviewed Nurses Notes: Yes (YAIR LOYA MD) Hx Smoking: No Smoking Status: Never Smoker Hx Substance Use Disorder: No Hx Alcohol Use: No (YAIR LOYA MD) Constitutional Vital Sign - Last 24 Hours 11/10/17 05:19 Temp 98.1 Pulse 119 Resp 16 B/P (MAP) 130/77 Pulse Ox 91 O2 Delivery Room Air (YUKI COOK MD) Physical Exam General Appearance: The patient is alert. No acute distress. Non-toxic in appearance. Eyes: Pupils are equal, round. No pallor, injection or icterus. ENT: Mucous membranes are moist. Normal oral mucosa. Posterior oropharynx is normal. Neck: Supple. has some pain with palpation. Respiratory: Lungs are clear to auscultation. Cardiovascular: Regular rate and rhythm. No murmurs, gallops or rubs. Normal capillary refill. Gastrointestinal: Abdomen is soft and non tender. Nondistended. Normal active bowel sounds. Neurological: Alert and oriented x3. Normal sensation in legs and arms. Has generalized weakness in the extremities and has an intention tremor. Skin: Warm and dry. No rashes. Musculoskeletal: Pain with palpation of the back and neck.. Pain in the right hip with palpation laterally and posteriorly. Full range of motion. DIFFERENTIAL DIAGNOSIS: After history and physical exam, differential diagnosis was considered for fall with weakness that could be chronic worsening or also due to metabolic or infectious process. Concern for injury from the fall with a hip injury or compression injury in the spine. ([facility] MD) Medical Decision Making Data Points Result Diagram: 11/10/17 0648 11/10/17 0648 Laboratory Hematology Test 11/10/17 06:48 11/10/17 07:53 Red Blood Count 4.37 M/uL (4.17-5.56) Mean Corpuscular Volume 88.6 fL (80.0-96.0) Mean Corpuscular Hemoglobin 29.8 pg (26.0-33.0) Mean Corpuscular Hemoglobin Concent 33.6 g/dL (32.0-36.0) Red Cell Distribution Width 14.5 % (11.5-14.5) Mean Platelet Volume 6.7 fL (7.2-11.1) Neutrophils (%) (Auto) 84.8 % (39.4-72.5) Lymphocytes (%) (Auto) 8.6 % (17.6-49.6) Monocytes (%) (Auto) 5.8 % (4.1-12.4) Eosinophils (%) (Auto) 0.1 % (0.4-6.7) Basophils (%) (Auto) 0.7 % (0.3-1.4) Nucleated RBC Relative Count (auto) 0.0 /100WBC Neutrophils # (Auto) 10.2 K/uL (2.0-7.4) Lymphocytes # (Auto) 1.0 K/uL (1.3-3.6) Monocytes # (Auto) 0.7 K/uL (0.3-1.0) Eosinophils # (Auto) 0.0 K/uL (0.0-0.5) Basophils # (Auto) 0.1 K/uL (0.0-0.1) Nucleated RBC Absolute Count (auto) 0.00 K/uL Erythrocyte Sedimentation Rate 90 mm/HOUR (0-30) Sodium Level 140 mmol/L (137-145) Potassium Level 4.1 mmol/L (3.5-5.0) Chloride Level 106 mmol/L (98-107) Carbon Dioxide Level 24 mmol/L (22-31) Blood Urea Nitrogen 26 mg/dl (7-18) Creatinine 1.30 mg/dl (0.52-1.04) Glomerular Filtration Rate Calc 38.8 Random Glucose 121 mg/dl (75-110) Calcium Level 8.9 mg/dl (8.4-10.2) Total Bilirubin 0.3 mg/dl (0.2-1.3) Aspartate Amino Transf (AST/SGOT) 16 U/L (0-35) Alanine Aminotransferase (ALT/SGPT) 19 U/L (0-56) Alkaline Phosphatase 59 U/L (0-126) Total Protein 6.6 g/dl (6.3-8.2) Albumin 3.4 g/dl (3.5-5.0) Urine Color Yellow Urine Clarity Clear Urine pH 5.0 pH (4.8-9.5) Urine Specific [place] 1.015 Urine Protein Negative mg/dL (NEGATIVE) Urine Glucose (UA) Negative mg/dL (NEGATIVE) Urine Ketones Trace mg/dL (NEGATIVE) Urine Blood Negative (NEGATIVE) Urine Nitrite Negative (NEGATIVE) Urine Bilirubin Negative (NEGATIVE) Urine Urobilinogen Negative mg/dL (0.2-1.9) Urine Leukocyte Esterase Negative (NEGATIVE) Urine RBC <1 /HPF (0-2/HPF) Urine WBC 1 /HPF (0-5/HPF) Urine Squamous Epithelial Cells None /LPF (NONE-FEW) Urine Bacteria Few /HPF (NONE-FEW) Urine Mucus Few /HPF (NONE-FEW) Chemistry Test 11/10/17 06:48 11/10/17 07:53 White Blood Count 12.0 k/uL (4.5-11.0) Red Blood Count 4.37 M/uL (4.17-5.56) Hemoglobin 13.0 g/dL (12.0-16.0) Hematocrit 38.7 % (34.0-47.0) Mean Corpuscular Volume 88.6 fL (80.0-96.0) Mean Corpuscular Hemoglobin 29.8 pg (26.0-33.0) Mean Corpuscular Hemoglobin Concent 33.6 g/dL (32.0-36.0) Red Cell Distribution Width 14.5 % (11.5-14.5) Platelet Count 515 K/uL (150-450) Mean Platelet Volume 6.7 fL (7.2-11.1) Neutrophils (%) (Auto) 84.8 % (39.4-72.5) Lymphocytes (%) (Auto) 8.6 % (17.6-49.6) Monocytes (%) (Auto) 5.8 % (4.1-12.4) Eosinophils (%) (Auto) 0.1 % (0.4-6.7) Basophils (%) (Auto) 0.7 % (0.3-1.4) Nucleated RBC Relative Count (auto) 0.0 /100WBC Neutrophils # (Auto) 10.2 K/uL (2.0-7.4) Lymphocytes # (Auto) 1.0 K/uL (1.3-3.6) Monocytes # (Auto) 0.7 K/uL (0.3-1.0) Eosinophils # (Auto) 0.0 K/uL (0.0-0.5) Basophils # (Auto) 0.1 K/uL (0.0-0.1) Nucleated RBC Absolute Count (auto) 0.00 K/uL Erythrocyte Sedimentation Rate 90 mm/HOUR (0-30) Glomerular Filtration Rate Calc 38.8 Calcium Level 8.9 mg/dl (8.4-10.2) Total Bilirubin 0.3 mg/dl (0.2-1.3) Aspartate Amino Transf (AST/SGOT) 16 U/L (0-35) Alanine Aminotransferase (ALT/SGPT) 19 U/L (0-56) Alkaline Phosphatase 59 U/L (0-126) Total Protein 6.6 g/dl (6.3-8.2) Albumin 3.4 g/dl (3.5-5.0) Urine Color Yellow Urine Clarity Clear Urine pH 5.0 pH (4.8-9.5) Urine Specific [place] 1.015 Urine Protein Negative mg/dL (NEGATIVE) Urine Glucose (UA) Negative mg/dL (NEGATIVE) Urine Ketones Trace mg/dL (NEGATIVE) Urine Blood Negative (NEGATIVE) Urine Nitrite Negative (NEGATIVE) Urine Bilirubin Negative (NEGATIVE) Urine Urobilinogen Negative mg/dL (0.2-1.9) Urine Leukocyte Esterase Negative (NEGATIVE) Urine RBC <1 /HPF (0-2/HPF) Urine WBC 1 /HPF (0-5/HPF) Urine Squamous Epithelial Cells None /LPF (NONE-FEW) Urine Bacteria Few /HPF (NONE-FEW) Urine Mucus Few /HPF (NONE-FEW) Urinalysis Test 11/10/17 07:53 Urine Color Yellow Urine Clarity Clear Urine pH 5.0 pH (4.8-9.5) Urine Specific [place] 1.015 Urine Protein Negative mg/dL (NEGATIVE) Urine Glucose (UA) Negative mg/dL (NEGATIVE) Urine Ketones Trace mg/dL (NEGATIVE) Urine Blood Negative (NEGATIVE) Urine Nitrite Negative (NEGATIVE) Urine Bilirubin Negative (NEGATIVE) Urine Urobilinogen Negative mg/dL (0.2-1.9) Urine Leukocyte Esterase Negative (NEGATIVE) Urine RBC <1 /HPF (0-2/HPF) Urine WBC 1 /HPF (0-5/HPF) Urine Squamous Epithelial Cells None /LPF (NONE-FEW) Urine Bacteria Few /HPF (NONE-FEW) Urine Mucus Few /HPF (NONE-FEW) (YUKI COOK MD) ED Course/Re-evaluation Turned Over The care of the patient was turned over to Dr. Cook. Yair Loya M.D. I authorize my typed signature that I authenticated this report. (YAIR LOYA MD) ED Course I t/o c/o pt at 0700; presented after fall at home, has had multiple msk evaluations/visits, walks with walker, this am when she attempted to stand to ambulate and go to bathroom, her legs gave out due to pain/weakness. She has pain of shoulders/elbows/hips/knees and rom limited due to pain +/- weakness. Lives at home alone and has walker, but no true caregiver (caregiver is a friend ). ED eval unremarkable for acute injury, though ESR is 90 and given hx of response to steroids in past, consider PMR or other inflammatory chronic disease process. HD stable in ED; will admit to Dr. Brewer for further evaluation. Decision to Disposition Date: Nov 10, 2017 Decision to Disposition Time: 08:45 (YUKI COOK MD) Depart Departure Latest Vital Signs Vital Signs Date Time Temp Pulse Resp B/P (MAP) Pulse Ox O2 Delivery O2 Flow Rate FiO2 11/10/17 05:19 98.1 119 16 130/77 91 Room Air (YUKI COOK MD) Impression: Primary Impression: Myalgia Additional Impressions: Weakness Elevated erythrocyte sedimentation rate Condition: Condition Unchanged Disposition: Admitted from ER Referrals: [facility] (PCP) Problem Qualifiers YAIR LOYA MD Nov 10, 2017 05:31 YUKI COOK MD Nov 10, 2017 09:01
[2017-11-10] MEDS ORDERED: APAP/HYDROCODONE 325/5 TAB PO ONE (05:50)
--- NOTE | 2017-11-10 06:54 | RADIOLOGY IMAGING REPORT ---
FACILITY: [facility] PATIENT NAME: Maren Salamanca : 1930 MR: [id number] V: [id number] EXAM DATE: ORDERING PHYSICIAN: RONALD ROBLES TECHNOLOGIST: Location: [facility] [place] Patient: Maren Salamanca : 1930 Visit/Account:[id number] Date of Sevice: 11/10/2017 HIP RIGHT HISTORY: fall, back and hip pain Pelvis and left hip films. COMPARISON: 09/05/2017 FINDINGS: Pelvis is intact. No fractures. Specifically the right hip demonstrates a well-maintained femoral nec k and proximal femur. DJD changes noted along the inferior medial aspect of the right hip joint. The prosthetic left hip is well-maintained. Spondylitic changes in the lower lumbar spine. IMPRESSION: 1. Negative right hip for acute bony pathology. No interval change in appearance of the pelvis and ri ght hip when compared to a previous study from 09/05/2017 Report Dictated By: Marco Rollins MD at 11/10/2017 6:46 AM Report E-Signed By: Marco Rollins MD at 11/10/2017 6:50 AM WSN:[id number]
--- NOTE | 2017-11-10 06:56 | RADIOLOGY IMAGING REPORT ---
FACILITY: [facility] PATIENT NAME: Maren Salamanca : 1930 MR: [id number] V: [id number] EXAM DATE: ORDERING PHYSICIAN: RONALD ROBLES TECHNOLOGIST: Location[place] [facility] [place] Patient: Maren Salamanca : 1930 Visit/Account:[id number] Date of Sevice: 11/10/2017 T-SPINE W/O CONTRAST HISTORY: fall, back and neck pain CT scan of the thoracic spine from the lower thoracic through the L1 level. Reconstructed sagittal a nd coronal scans obtained as well. One of the following dose optimization techniques was utilized in the performance of this exam: Autom ated exposure control; adjustment of the mA and/or kV according to the patient's size; or use of an i terative reconstruction technique. Specific details can be referenced in the facility's radiology C T exam operational policy. FINDINGS: No compression deformities or fractures. The vertebral bodies are well maintained with respect to hei ght and alignment. Posterior elements well-maintained alignment with no facet fracture or disruption. Small hemangioma noted T6 vertebral body. Paravertebral soft tissues unremarkable. Visualized lungs well-maintained. IMPRESSION: 1. Negative thoracic spine for acute bony pathology. Report Dictated By: Marco Rollins MD at 11/10/2017 6:50 AM Report E-Signed By: Marco Rollins MD at 11/10/2017 6:53 AM WSN:[id number]
[2017-11-10 07:00] LABS: PLATELET COUNT, AUTOMATED 515 K/uL (150-450)
--- NOTE | 2017-11-10 07:56 | RADIOLOGY IMAGING REPORT ---
[place] [facility] [place]: Maren Salamanca : 1930 MR: [id number] V: [id number] EXAM DATE: ORDERING PHYSICIAN: RONALD ROBLES TECHNOLOGIST: Location: [facility] Patient: Maren Salamanca : 1930 Visit/Account:[id number] Date of Sevice: 11/10/2017 L-SPINE W/O CONTRAST HISTORY: fall, back and neck pain CT scan of the lumbar spine. Axial imaging from the T12 through the sacrum with reconstructed sagittal and coronal scans. This wit hout IV contrast One of the following dose optimization techniques was utilized in the performance of this exam: Autom ated exposure control; adjustment of the mA and/or kV according to the patient's size; or use of an i terative reconstruction technique. Specific details can be referenced in the facility's radiology C T exam operational policy. FINDINGS: Study demonstrates no acute compression deformities or fractures of the visualized lumbar spine. Alig nments well-maintained with just minimal degenerative retrolisthesis of L fourth respect L5. Posterio r elements are well-maintained with no facet fracture or disruption. There are advanced disc space na rrowing changes at the L4-5 level. Prominent anterior spurring changes are seen throughout the lumbar spine from the L2-3 level through the L5-S1 level. There is a scoliotic curvature of the lumbar spin e maximally convex to the right at the T3 level. There appears to be a high-grade stenosis of the teddy ral canal at the L4-5 level from facet hypertrophy thickening of ligamentum flavum and a disc osteoph yte complex. Mild infrarenal abdominal aortic aneurysmal change of approximately 2.4 cm. 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 IMPRESSION: 1. Negative lumbar spine for acute lumbar fracture. DJD changes as described. 2. 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 3. 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 Report Dictated By: Marco Rollins MD at 11/10/2017 7:43 AM Report E-Signed By: Marco Rollins MD at 11/10/2017 7:53 AM WSN:[id number]
--- NOTE | 2017-11-10 08:04 | RADIOLOGY IMAGING REPORT ---
FACILITY: [facility] - [place] PATIENT NAME: Maren Salamanca : 1930 MR: [id number] V: [id number] EXAM DATE: ORDERING PHYSICIAN: RONALD ROBLES TECHNOLOGIST: Location: [facility] - [place] Patient: Maren Salamanca : 1930 Visit/Account:[id number] Date of Sevice: 11/10/2017 C-SPINE W/O CONTRAST EXAMINATION: CT cervical spine with contrast One of the following dose optimization techniques was utilized in the performance of this exam: Autom ated exposure control; adjustment of the mA and/or kV according to the patient's size; or use of an i terative reconstruction technique. Specific details can be referenced in the facility's radiology C T exam operational policy. Fall COMPARISON STUDIES: None TECHNIQUE: Axial images were obtained from the skull base through the upper thoracic spine without co ntrast. Coronal and sagittal reformatted images were obtained from the axial source data. One of the following dose optimization techniques was utilized in the performance of this exam: Autom ated exposure control; adjustment of the mA and/or kV according to the patient's size; or use of an i terative reconstruction technique. Specific details can be referenced in the facility's radiology C T exam operational policy. FINDINGS: Prevertebral soft tissues: Normal Alignment: Loss of the normal cervical lordosis. Kyphotic curvature centered at the C4-5 interspace. Degenerative 4 mm retrolisthesis of C fourth respect to C3. Minimal retrolisthesis C3 with respect to C2 and anterolisthesis of C7 with respect to C6 and T1. Vertebral bodies: No compression deformities or fractures. Posterior elements: Facet DJD. No facet fracture or disruption. Facet arthropathy noted throughout th e cervical spine. The tendon neural foraminal narrowing changes at multiple levels most notably on th e left at the L4-5 level and on the right at C5-6 level Disc spaces: Advanced disc space narrowing and anterior and posterior osteophytic spurring changes fr om the C4-5 through the C6-7 levels. Visualized soft tissues anterior neck: Negative Visualized lung/mediastinum: Negative IMPRESSION: 1. Cervical spondylitic degenerative changes as described. No acute fracture noted. Report Dictated By: Marco Rollins MD at 11/10/2017 7:53 AM Report E-Signed By: Marco Rollins MD at 11/10/2017 8:02 AM WSN:[id number]
[2017-11-10] MEDS ORDERED: predniSONE 20 MG TAB PO ONE (08:05)
[2017-11-10] MEDS ORDERED: IBUP-136 PO (10:44)
[2017-11-10] MEDS ORDERED: ACET-1966 PO (10:44)
[2017-11-10 10:46] VITALS: BP 108/62
[2017-11-10 11:05] VITALS: Ht 160 cm; Wt 59.5 kg
--- NOTE | 2017-11-10 11:37 | History & Physical ---
History of Present Illness Chief Complaint Weakness History of Present Illness This patient presented to the emergency room complaining of weakness. She has presented multiple times over the last several months with similar complaints. She describes the weakness as being located in her legs and shoulders. It is most noticeable when trying to stand from a sit or when trying to lift her arms overhead. She has received a dose of prednisone prior to this admission, and did notice that she had a dramatic improvement in her symptoms. However, her symptoms returned once the steroids were discontinued. History Problems: (1) Hypothyroidism Status: Chronic (2) DJD (degenerative joint disease) Status: Chronic (3) HTN (hypertension) Status: Chronic (4) Hx of cataract extraction Status: Chronic (5) Hx of vein stripping Status: Chronic (6) Hx of oral surgery Status: Chronic Home Meds Active Scripts Hydrocodone Bit/Acetaminophen (HYDROCODON-ACETAMINOPHEN 5-325) 1 Each Tablet, 1 EACH PO Q6-8H Y for PAIN, #12 TAB 0 Refills TAKE ONE TABLET BY MOUTH EVERY 4-6 HOURS NEEDED FOR PAIN Prov:YUKI GARCIA MD 10/08/17 Lorazepam (ATIVAN) 0.5 Mg Tablet, 0.5 MG PO Q6-8H Y for muscle spasm relief, #15 Prov:VANESSA CHINCHILLA DO 09/11/17 Reported Medications Ibuprofen (IBUPROFEN) 200 Mg Capsule, 1 CAP PO Q6H, CAPSULE 11/10/17 Acetaminophen (TYLENOL) 325 Mg Tablet, 2 TAB PO Q6H Y for PAIN, TAB 11/10/17 Gabapentin (GABAPENTIN) 300 Mg Capsule, 100 MG PO TID, CAPSULE 11/10/17 Naproxen Sodium (ALEVE) 220 Mg Capsule, 220 MG PO QDAY, CAPSULE 10/08/17 Calcium Carbonate (TUMS) 300 Mg Tab.chew, 300 MG PO HS, TAB.CHEW 10/08/17 Lisinopril (LISINOPRIL) 5 Mg Tablet, 5 MG PO QDAY, TAB 09/05/17 Docusate Sodium (COLACE) 100 Mg Capsule, 100 MG PO QDAY, CAPSULE 09/05/17 Cholecalciferol (Vitamin D3) (VITAMIN D3) 1,000 Unit Tablet, 2 TAB PO QAM, TAB 09/10/16 Aspirin (ASPIRIN) 325 Mg Tablet, 325 MG PO DAILY, TAB 08/10/14 Levothyroxine Sodium (SYNTHROID) 50 Mcg Tablet, 50 MCG PO QDAY TAKE ONE TABLET BY MOUTH IN THE MORNING ON AN EMPTY STOMACH AT LEAST 30 MINUTES BEFORE FOOD 08/10/14 Discontinued Scripts Prednisone (PREDNISONE) 20 Mg Tablet, 20 MG PO QDAY, #6 TAB 0 Refills 20 mg PO QD for 3 days; then 10 mg (1/2 tab) PO QD for 3 days; then 10 mg (1/2 tab) PO every other day for three doses. Prov:YUKI GARCIA MD 10/08/17 Hydrocodone Bit/Acetaminophen (HYDROCODON-ACETAMINOPHEN 5-325) 1 Each Tablet, 1 EACH PO Q4H Y for PAIN, #8 TAB 0 Refills Prov:RONALD ROBLES MD 09/05/17 Allergies: Coded Allergies: Penicillins (Verified Allergy, Severe, SWELLING, 10/27/17) THROAT SWELLING Tetanus Vaccines and Toxoid (Verified Allergy, Intermediate, UNKNOWN, 10/27) influenza virus vaccine, specific (Verified Allergy, Intermediate, UNKNOWN , 10/27/17) pneumococcal vaccine (Verified Allergy, Intermediate, 10/27/17) N/V Patient History: FH: brain cancer BROTHER OR SISTER Hx Smoking: No Smoking Status: Never Smoker Hx Alcohol Use: No Hx Substance Use Disorder: No Review of Systems All Systems Reviewed/Normal: Yes, Except as Noted Neurological: Weakness Exam Vital Signs Vital Signs Date Time Temp Pulse Resp B/P (MAP) Pulse Ox O2 Delivery O2 Flow Rate FiO2 11/10/17 10:56 97.9 11/10/17 10:46 87 20 108/62 (77) 94 Room Air Neuro: No Gross deficits Eyes: PERRLA Cardiovascular: Regular Rate and Rhythm Respiratory: Clear to Auscultation GI: Abd Soft and Non-Tender Extremities: No Edema Integumentary: No Cyanosis Medical Decision Making Data Points Result Diagram: 11/10/17 0648 11/10/17 0648 EKG / Imaging Imaging CT of spine and hip x-ray reviewed. Assessment and Plan Problems: (1) PMR (polymyalgia rheumatica) Assessment & Plan: She did present with proximal weakness in her thighs and shoulders. She has previously improved with prednisone, but her symptoms recurred once the steroids were stopped. She did get a dose of prednisone in the emergency room and we have scheduled her to start at 15mg daily tomorrow. We have also requested therapy evaluations. (2) Hypothyroidism Status: Chronic Assessment & Plan: She is on chronic treatment with Synthroid. (3) HTN (hypertension) Status: Chronic Assessment & Plan: She has been on chronic treatment with lisinopril, but notes that her blood pressure has been running low at home. She is low normal on admission. Her lisinopril has been held. Copies to: MIL LI Venous Thromboembolism Antithrombotics Is Pt On Any Antithrombotics?: No Exam Sepsis Risk: No Definite Risk PAUL ORDONEZ DO Nov 10, 2017 11:37
[2017-11-10 12:10] VITALS: BP 102/65
[2017-11-10] MEDS ORDERED: GABAPENTIN 300 MG CAP ONE (12:20)
[2017-11-10] MEDS: ACETAMINOPHEN 325 MG TAB PO PRN ×2 (12:29→20:44)
[2017-11-10 14:21] VITALS: BP 94/56
[2017-11-10] MEDS: GABAPENTIN 100 MG CAP PO SCH ×2 (14:46→20:43)
[2017-11-10 19:20] VITALS: BP 94/53
[2017-11-11 05:43] VITALS: BP 123/74
[2017-11-11] MEDS: LEVOTHYROXINE SOD 0.05 MG TAB PO SCH (05:45)
[2017-11-11 07:45] VITALS: BP 110/61
[2017-11-11] MEDS: ASPIRIN 325 MG TAB PO SCH (08:35)
[2017-11-11] MEDS: ACETAMINOPHEN 325 MG TAB PO PRN ×2 (08:35→20:23)
[2017-11-11] MEDS: DOCUSATE SODIUM 100 MG CAP PO SCH (08:35)
[2017-11-11] MEDS: CHOLECALCIFEROL 1000 UNIT TAB PO SCH (08:35)
[2017-11-11] MEDS: GABAPENTIN 100 MG CAP PO SCH ×3 (08:35→20:22)
[2017-11-11] MEDS: predniSONE 5 MG TAB PO SCH (08:35)
--- NOTE | 2017-11-11 10:35 | Hospitalist Progress Note ---
Subjective Progress Notes Subjective The patient feels better but is still weak especially in her arms/forearms/ hands. Physical Exam Vital Signs Date Time Temp Pulse Resp B/P (MAP) Pulse Ox O2 Delivery O2 Flow Rate FiO2 11/11/17 07:50 96 Room Air 11/11/17 07:45 97.7 85 20 110/61 (77) Intake and Output 11/12/17 07:00 Intake Total 0 ml Balance 0 ml Intake Oral 0 ml General Appearance: Alert, Awake, No Acute Distress, Afebrile Neuro: No Gross deficits Cardiovascular: Regular Rate and Rhythm Respiratory: Clear to Auscultation GI: Soft and Non-Tender Musculoskeletal: Other (Hip flexors 4/5, equal bilaterally. Biceps 4/5 equal bilaterally.) Extremities: Warm, Perfused, Other (No edema.) Integumentary: Skin Intact without Lesion / Mass Psych: Alert & Oriented X3, Appropriate Mood & Affect Result Diagram: 11/10/1764711/10/17647 Assessment and Plan Problems: (1) PMR (polymyalgia rheumatica) Assessment & Plan: She did present with proximal weakness in her thighs and shoulders. ESR in ER was 90. She had previously improved with prednisone, but her symptoms recurred once the steroids were stopped. She did get a dose of prednisone in the emergency room and we have continued prednisone at 15mg daily. We have also requested therapy evaluations(OT/PT) as well as social work. (2) Hypothyroidism Status: Chronic Assessment & Plan: She is on chronic treatment with Synthroid. TSH ordered with am labs. (3) HTN (hypertension) Status: Chronic Assessment & Plan: She has been on chronic treatment with lisinopril, but notes that her blood pressure has been running low at home. She is low normal on admission. Her lisinopril has been held. Time Spent on Plan of Care: < 30 min Exam Sepsis Risk: No Definite Risk MICHAEL MOBLEY MD Nov 11, 2017 10:35
[2017-11-11 12:18] VITALS: BP 116/61
[2017-11-11 14:42] VITALS: BP 93/48
[2017-11-11 19:06] VITALS: BP 110/59
[2017-11-12 05:30] VITALS: BP 117/63
[2017-11-12] MEDS: ACETAMINOPHEN 325 MG TAB PO PRN (05:33)
[2017-11-12] MEDS: LEVOTHYROXINE SOD 0.05 MG TAB PO SCH (05:33)
[2017-11-12 06:08] LABS: PLATELET COUNT, AUTOMATED 512 K/uL (150-450)
[2017-11-12] MEDS: ASPIRIN 325 MG TAB PO SCH (09:08)
[2017-11-12] MEDS: GABAPENTIN 100 MG CAP PO SCH ×2 (09:08→14:11)
[2017-11-12] MEDS: predniSONE 5 MG TAB PO SCH (09:08)
[2017-11-12] MEDS: CHOLECALCIFEROL 1000 UNIT TAB PO SCH (09:09)
[2017-11-12] MEDS: DOCUSATE SODIUM 100 MG CAP PO SCH (09:09)
[2017-11-12 09:17] VITALS: BP 113/62
[2017-11-12] MEDS ORDERED: PRE5 PO (14:52)
--- NOTE | 2017-11-12 14:58 | Hospitalist Depart ---
Discharge Summary Reason for Hosp/Final Diag: (1) PMR (polymyalgia rheumatica) Hospital Course & Plan: She did present with proximal weakness in her thighs and shoulders. ESR in ER was 90. She had previously improved with prednisone, but her symptoms recurred once the steroids were stopped. She responded well to restarting the prednisone at 15mg daily. She has also been cleared by physical therapy and will do home health after discharge. The dose of her prednisone can be tapered to the lowest dose at which her symptoms are controlled. (2) Hypothyroidism Status: Chronic Hospital Course & Plan: She is on chronic treatment with Synthroid. (3) HTN (hypertension) Status: Chronic Hospital Course & Plan: She has been on chronic treatment with lisinopril, but notes that her blood pressure has been running low at home. Her pressure has been low normal here without treatment. We have discontinued the lisinopril. Departure Latest Vital Signs Vital Signs 11/12/17 11/12/17 09:17 09:18 Temp 98.5 Pulse 82 Resp 16 B/P (MAP) 113/62 (79) Pulse Ox 94 O2 Delivery Room Air Weight (Pounds): 131 Weight (Ounces): 2.0 Result Diagram: 11/12/17 0503 11/12/17 0503 Condition: Improved Discharge: Home, Home Health PT/OT Follow Up For: PT For Strengthening, OT For ADL's Home Health DECORATING [employer]PER[employer]OR Follow Up For: ADL Assistance Discharge Instructions Home Meds Active Scripts Prednisone 5 Mg Tab (PREDNISONE 5 MG TAB) 5 Mg Tablet, 15 MG PO QDAY, #14 TAB Prov:MERYPAUL DO 11/12/17 Reported Medications Acetaminophen (TYLENOL) 325 Mg Tablet, 2 TAB PO Q6H Y for PAIN, TAB 11/10/17 Gabapentin (GABAPENTIN) 300 Mg Capsule, 100 MG PO TID, CAPSULE 11/10/17 Calcium Carbonate (TUMS) 300 Mg Tab.chew, 300 MG PO HS, TAB.CHEW 10/08/17 Docusate Sodium (COLACE) 100 Mg Capsule, 100 MG PO QDAY, CAPSULE 09/05/17 Cholecalciferol (Vitamin D3) (VITAMIN D3) 1,000 Unit Tablet, 2 TAB PO QAM, TAB 09/10/16 Aspirin (ASPIRIN) 325 Mg Tablet, 325 MG PO DAILY, TAB 08/10/14 Levothyroxine Sodium (SYNTHROID) 50 Mcg Tablet, 50 MCG PO QDAY TAKE ONE TABLET BY MOUTH IN THE MORNING ON AN EMPTY STOMACH AT LEAST 30 MINUTES BEFORE FOOD 08/10/14 Discontinued Reported Medications Ibuprofen (IBUPROFEN) 200 Mg Capsule, 1 CAP PO Q6H, CAPSULE 11/10/17 Naproxen Sodium (ALEVE) 220 Mg Capsule, 220 MG PO QDAY, CAPSULE 10/08/17 Lisinopril (LISINOPRIL) 5 Mg Tablet, 5 MG PO QDAY, TAB 09/05/17 Discontinued Scripts Hydrocodone Bit/Acetaminophen (HYDROCODON-ACETAMINOPHEN 5-325) 1 Each Tablet, 1 EACH PO Q6-8H Y for PAIN, #12 TAB 0 Refills TAKE ONE TABLET BY MOUTH EVERY 4-6 HOURS NEEDED FOR PAIN Prov:YUKI GARCIA MD 10/08/17 Lorazepam (ATIVAN) 0.5 Mg Tablet, 0.5 MG PO Q6-8H Y for muscle spasm relief, #15 Prov:VANESSA CHINCHILLA DO 09/11/17 Prednisone (PREDNISONE) 20 Mg Tablet, 20 MG PO QDAY, #6 TAB 0 Refills 20 mg PO QD for 3 days; then 10 mg (1/2 tab) PO QD for 3 days; then 10 mg (1/2 tab) PO every other day for three doses. Prov:YUKI GARCIA MD 10/08/17 Hydrocodone Bit/Acetaminophen (HYDROCODON-ACETAMINOPHEN 5-325) 1 Each Tablet, 1 EACH PO Q4H Y for PAIN, #8 TAB 0 Refills Prov:RONALD ROBLES MD 09/05/17 Diet: Regular Activity: As Tolerated Copies to: MIL LI Venous Thromboembolism Antithrombotics Is Pt On Any Antithrombotics?: No [id number] Certification Face to Face Home Health Certification Institutional Provider conducted the [id number] encounter. Electronic Undersigning Physician Certifies Home Health. I certify that the patient has been under my care and that I had a [id number] encounter that meets the physician [id number] encounter requirements with this patient. This patient is home-bound due to safety issues and continues to require assistance with ADL's. I certify that based on my findings, that Nursing, Aides and the following Home Health services are medically necessary: Medical Necessity: Nursing, Rehab Date Face to Face Conducted: Nov 12, 2017 Problem Qualifiers (1) HTN (hypertension): Hypertension type: essential hypertension Qualified Codes: I10 - Essential ( primary) hypertension PAUL ORDONEZ DO Nov 12, 2017 14:58
== END 2017-11-12 14:52 | disposition home health service (06) ==
LOC: ER 05:19 → INTOOBSV 09:31 → MED 09:31
PROVIDERS: ADMIT Family Medicine; ATTEND Family Medicine
DX: R53.1 Weakness (principal); M79.1 Myalgia; R70.0 Elevated erythrocyte sedimentation rate; M35.3 Polymyalgia rheumatica; E03.9 Hypothyroidism, unspecified; I10 Essential (primary) hypertension; W18.30XA Fall on same level, unspecified, initial encounter; M54.2 Cervicalgia
CPT/HCPCS: 36415; 72125; 72128; 72131; 73502; 81001; 84443; 85025; 85651; 97161; 99284; A4353; A9270; G0378; J7512; 82040; 82247; 82310; 82374; 82435; 82565; 82947; 84075; 84132; 84155; 84295; 84450; 84460; 84520

== ENCOUNTER → 2017-11-10 | Outpatient (CLI) | payer MEDICARE ==
[~2017-11-10] MED LIST changes: +ACET-1966 PO; +GABA-549 PO; +IBUP-136 PO; +PRE5 PO
[2017-11-10 11:05] VITALS: BMI 23.2
== END ==
LOC: AMB 04:39
PROVIDERS: ATTEND Nurse Practitioner
DX: R53.1 Weakness (principal)
CPT/HCPCS: A0425; A0427

== ENCOUNTER → 2018-09-11 | Outpatient (CLI) | payer MEDICARE ==
[2017-11-10 11:05] VITALS: BMI 23.2
[~2018-09-11] MED LIST changes: +ACET-1966 PO; +ATOR10TA24 PO; +GABA-549 PO; -HYDR-4309 PO; +HYDR-653 PO; +IBUP-136 PO; +POLY17PO11 PO; -POLY17PO21 PO; +PRE5 PO
== END ==
LOC: AMB 06:26
PROVIDERS: ATTEND Nurse Practitioner
DX: R19.7 Diarrhea, unspecified (principal); R10.31 Right lower quadrant pain; R10.32 Left lower quadrant pain
CPT/HCPCS: A0425; A0427

== ENCOUNTER → 2018-09-11 | Emergency (ER) | payer MEDICARE ==
[2017-11-10 11:05] VITALS: Wt 49.9 kg
[~2018-09-11] MED LIST changes: +IOPAMIDOL 76% 100 ML INFUS BTL 100 ML ONE; +NS(*) 0.9% 1000 ML BAG 1,000 ML IV ONE; +ONDANSETRON 4 MG/2 ML VIAL IVP ONE; +ONDANSETRON 4 MG/2 ML VIAL ONE
[2018-09-11 07:17] LABS: PLATELET COUNT, AUTOMATED 247 K/uL (150-450)
--- NOTE | 2018-09-11 07:17 | EKG ---
FACILITY: [facility] PATIENT NAME: MONTY BYERS : [id number] MR: [id number] V: [id number] EXAM DATE: ORDERING PHYSICIAN: FRANCISCO J MARTINEZ TECHNOLOGIST: Test Reason : abdomical pain Blood Pressure : / mmHG Vent. Rate : 086 BPM Atrial Rate : 086 BPM P-R Int : 126 ms QRS Dur : 074 ms QT Int : 394 ms P-R-T Axes : 070 059 067 degrees QTc Int : 471 ms Sinus rhythm No acute appearing findings Artifact in limb leads - repeat if needed Confirmed by CRISPIN MOBLEY ([id number]) on 09/11/2018 10:50:26 AM Referred By: Confirmed By:CRISPIN MOBLEY
[2018-09-11 07:23] LABS: INR 1.01
--- NOTE | 2018-09-11 07:24 | ER Report ---
History and Physical Time Seen By MD: 08:00 Hx. of Stated Complaint: N/V/D SINCE EARLY THIS MORNING. LOW GRADE FEVER HPI/ROS CHIEF COMPLAINT: Diarrhea abdominal pain vomiting HISTORY OF PRESENT ILLNESS: 87-year-old female significant past surgical history of hysterectomy comes emergency Department today approximately 3:00 yesterday afternoon she states that she Salit subsequently upon completion about 45 minutes after eating the salad she said that she had multiple episodes of diarrhea and loose stool to his episodes of vomiting nonbloody nonbilious emesis nonbloody nonbilious diarrhea mild abdominal discomfort subsequently resolved she went to bed last night and awoke this morning completely asymptomatic. Patie nt states yesterday she was nauseated most the day however this when she woke up she has no more abdominal discomfort no more nausea or vomiting or diarrhea she denies any fever or chills or additional complaints noted. Patient denies chest pain shortness of breath patient has no additional complaints at this time. Patient described abdominal discomfort is dull and aching non-localized generalized across the abdomen socio-primarily with diarrhea and subsequently resolved no localized sharp stabbing pain. REVIEW OF SYSTEMS: Respiratory: No cough, no dyspnea. Cardiovascular: No chest pain, no palpitations. Gastrointestinal: Vomiting diarrhea non-localized abdominal pain Musculoskeletal: No back pain. Remainder of the 14 system rev: Yes Allergies: Coded Allergies: Penicillins (Verified Allergy, Severe, SWELLING, 09/11/18) THROAT SWELLING Tetanus Vaccines and Toxoid (Verified Allergy, Intermediate, UNKNOWN, 09/11/18) gabapentin (Verified Allergy, Intermediate, 09/11/18) SEVERE SKIN REACTION influenza virus vaccine, specific (Verified Allergy, Intermediate, UNKNOWN, 10/27/17) pneumococcal vaccine (Verified Allergy, Intermediate, 09/11/18) N/V Home Meds Reported Medications Atorvastatin Calcium (LIPITOR) 10 Mg Tablet, 1 TAB PO QDAY, TAB 09/11/18 Acetaminophen (TYLENOL) 325 Mg Tablet, 2 TAB PO Q6H PRN for PAIN, TAB 11/10/17 Calcium Carbonate (TUMS) 300 Mg Tab.chew, 300 MG PO HS, TAB.CHEW 10/08/17 Docusate Sodium (COLACE) 100 Mg Capsule, 100 MG PO QDAY, CAPSULE 09/05/17 Cholecalciferol (Vitamin D3) (VITAMIN D3) 1,000 Unit Tablet, 2 TAB PO QAM, TAB 09/10/16 Aspirin (ASPIRIN) 325 Mg Tablet, 325 MG PO DAILY, TAB 08/10/14 Levothyroxine Sodium (SYNTHROID) 50 Mcg Tablet, 50 MCG PO QDAY TAKE ONE TABLET BY MOUTH IN THE MORNING ON AN EMPTY STOMACH AT LEAST 30 MINUTES BEFORE FOOD 08/10/14 Discontinued Reported Medications Gabapentin (GABAPENTIN) 300 Mg Capsule, 100 MG PO TID, CAPSULE 11/10/17 Discontinued Scripts Prednisone 5 Mg Tab (PREDNISONE 5 MG TAB) 5 Mg Tablet, 15 MG PO QDAY, #14 TAB Prov:PAUL ORDONEZ 11/12/17 Reviewed Nurses Notes: Yes Old Medical Records Reviewed: Yes Hx Smoking: No Smoking Status: Never Smoker Hx Substance Use Disorder: No Hx Alcohol Use: No Constitutional Vital Sign - Last 24 Hours 09/11/18 09/11/18 09/11/18 09/11/18 06:44 06:49 07:13 07:15 Temp 100.1 Pulse 113 89 Resp 20 19 B/P (MAP) 126/85 126/85 (99) Pulse Ox 94 92 O2 Delivery Room Air O2 Flow Rate 2.0 09/11/18 09/11/18 09/11/18 09/11/18 07:45 08:00 08:30 08:39 Pulse 90 91 89 Resp 11 11 19 B/P (MAP) 110/75 (87) Pulse Ox 94 93 91 09/11/18 09:06 B/P (MAP) 128/66 (86) Physical Exam General Appearance: The patient is alert, has no immediate need for airway protection and no current signs of toxicity. [ ] Eyes: Pupils equal and round no injection. Respiratory: Chest is non tender, lungs are clear to auscultation. Cardiac: regular rate and rhythm [ ] Gastrointestinal: Abdomen is soft and non tender, no masses, bowel sounds normal. Musculoskeletal: Neck: Neck is supple and non tender. Extremities have full range of motion and are non tender. Skin: No rashes or lesions. [ ] DIFFERENTIAL DIAGNOSIS: After history and physical exam differential diagnosis was considered for enteritis gastroenteritis small bowel obstruction food poisoning Medical Decision Making Data Points Result Diagram: 09/11/1870609/11/18 0707 Laboratory Hematology Test 09/11/18 07:07 09/11/18 09:07 Red Blood Count 5.34 M/uL (4.17-5.56) Mean Corpuscular Volume 94.4 fL (80.0-96.0) Mean Corpuscular Hemoglobin 31.6 pg (26.0-33.0) Mean Corpuscular Hemoglobin Concent 33.5 g/dL (32.0-36.0) Red Cell Distribution Width 13.8 % (11.5-14.5) Mean Platelet Volume 7.1 fL (7.2-11.1) Neutrophils (%) (Auto) 91.3 % (39.4-72.5) Lymphocytes (%) (Auto) 4.6 % (17.6-49.6) Monocytes (%) (Auto) 3.8 % (4.1-12.4) Eosinophils (%) (Auto) 0.0 % (0.4-6.7) Basophils (%) (Auto) 0.3 % (0.3-1.4) Nucleated RBC Relative Count (auto) 0.0 /100WBC Neutrophils # (Auto) 6.9 K/uL (2.0-7.4) Lymphocytes # (Auto) 0.3 K/uL (1.3-3.6) Monocytes # (Auto) 0.3 K/uL (0.3-1.0) Eosinophils # (Auto) 0.0 K/uL (0.0-0.5) Basophils # (Auto) 0.0 K/uL (0.0-0.1) Nucleated RBC Absolute Count (auto) 0.00 K/uL Prothrombin Time 13.4 seconds (12.0-14.4) Prothromb Time International Ratio 1.01 Activated Partial Thromboplast Time 29 seconds (23-35) Sodium Level 146 mmol/L (137-145) Potassium Level 3.9 mmol/L (3.5-5.0) Chloride Level 110 mmol/L (98-107) Carbon Dioxide Level 21 mmol/L (22-31) Blood Urea Nitrogen 18 mg/dl (7-18) Creatinine 1.20 mg/dl (0.52-1.04) Glomerular Filtration Rate Calc 42.6 Random Glucose 142 mg/dl (75-110) Lactate 2.8 mmol/L (0.7-2.1) Calcium Level 9.4 mg/dl (8.4-10.2) Total Bilirubin 0.4 mg/dl (0.2-1.3) Aspartate Amino Transf (AST/SGOT) 21 U/L (0-35) Alanine Aminotransferase (ALT/SGPT) 30 U/L (0-56) Alkaline Phosphatase 76 U/L (0-126) Troponin I < 0.012 ng/ml Total Protein 6.7 g/dl (6.3-8.2) Albumin 3.8 g/dl (3.5-5.0) Lipase 80 U/L (23-300) Serum Alcohol < 10 mg/dl Urine Color Yellow Urine Clarity Slightly-cloudy Urine pH 5.0 pH (4.8-9.5) Urine Specific [place] >1.060 Urine Protein Negative mg/dL (NEGATIVE) Urine Glucose (UA) Negative mg/dL (NEGATIVE) Urine Ketones Negative mg/dL (NEGATIVE) Urine Blood Small (NEGATIVE) Urine Nitrite Negative (NEGATIVE) Urine Bilirubin Negative (NEGATIVE) Urine Urobilinogen Negative mg/dL (0.2-1.9) Urine Leukocyte Esterase Large (NEGATIVE) Urine RBC 5 /HPF (0-2/HPF) Urine WBC 11 /HPF (0-5/HPF) Urine Squamous Epithelial Cells Many /LPF (</=FEW) Urine Bacteria Few /HPF (NONE-FEW) Urine Hyaline Casts Many /LPF (NONE-FEW) Urine Mucus Few /HPF (NONE-FEW) Chemistry Test 09/11/18 07:07 09/11/18 09:07 White Blood Count 7.6 k/uL (4.5-11.0) Red Blood Count 5.34 M/uL (4.17-5.56) Hemoglobin 16.9 g/dL (12.0-16.0) Hematocrit 50.5 % (34.0-47.0) Mean Corpuscular Volume 94.4 fL (80.0-96.0) Mean Corpuscular Hemoglobin 31.6 pg (26.0-33.0) Mean Corpuscular Hemoglobin Concent 33.5 g/dL (32.0-36.0) Red Cell Distribution Width 13.8 % (11.5-14.5) Platelet Count 247 K/uL (150-450) Mean Platelet Volume 7.1 fL (7.2-11.1) Neutrophils (%) (Auto) 91.3 % (39.4-72.5) Lymphocytes (%) (Auto) 4.6 % (17.6-49.6) Monocytes (%) (Auto) 3.8 % (4.1-12.4) Eosinophils (%) (Auto) 0.0 % (0.4-6.7) Basophils (%) (Auto) 0.3 % (0.3-1.4) Nucleated RBC Relative Count (auto) 0.0 /100WBC Neutrophils # (Auto) 6.9 K/uL (2.0-7.4) Lymphocytes # (Auto) 0.3 K/uL (1.3-3.6) Monocytes # (Auto) 0.3 K/uL (0.3-1.0) Eosinophils # (Auto) 0.0 K/uL (0.0-0.5) Basophils # (Auto) 0.0 K/uL (0.0-0.1) Nucleated RBC Absolute Count (auto) 0.00 K/uL Prothrombin Time 13.4 seconds (12.0-14.4) Prothromb Time International Ratio 1.01 Activated Partial Thromboplast Time 29 seconds (23-35) Glomerular Filtration Rate Calc 42.6 Lactate 2.8 mmol/L (0.7-2.1) Calcium Level 9.4 mg/dl (8.4-10.2) Total Bilirubin 0.4 mg/dl (0.2-1.3) Aspartate Amino Transf (AST/SGOT) 21 U/L (0-35) Alanine Aminotransferase (ALT/SGPT) 30 U/L (0-56) Alkaline Phosphatase 76 U/L (0-126) Troponin I < 0.012 ng/ml Total Protein 6.7 g/dl (6.3-8.2) Albumin 3.8 g/dl (3.5-5.0) Lipase 80 U/L (23-300) Serum Alcohol < 10 mg/dl Urine Color Yellow Urine Clarity Slightly-cloudy Urine pH 5.0 pH (4.8-9.5) Urine Specific [place] >1.060 Urine Protein Negative mg/dL (NEGATIVE) Urine Glucose (UA) Negative mg/dL (NEGATIVE) Urine Ketones Negative mg/dL (NEGATIVE) Urine Blood Small (NEGATIVE) Urine Nitrite Negative (NEGATIVE) Urine Bilirubin Negative (NEGATIVE) Urine Urobilinogen Negative mg/dL (0.2-1.9) Urine Leukocyte Esterase Large (NEGATIVE) Urine RBC 5 /HPF (0-2/HPF) Urine WBC 11 /HPF (0-5/HPF) Urine Squamous Epithelial Cells Many /LPF (</=FEW) Urine Bacteria Few /HPF (NONE-FEW) Urine Hyaline Casts Many /LPF (NONE-FEW) Urine Mucus Few /HPF (NONE-FEW) Coagulation Test 09/11/18 07:07 Prothrombin Time 13.4 seconds Prothromb Time International Ratio 1.01 Activated Partial Thromboplast Time 29 seconds Toxicology Test 09/11/18 07:07 Serum Alcohol < 10 mg/dl Urinalysis Test 09/11/18 09:07 Urine Color Yellow Urine Clarity Slightly-cloudy Urine pH 5.0 pH (4.8-9.5) Urine Specific [place] >1.060 Urine Protein Negative mg/dL (NEGATIVE) Urine Glucose (UA) Negative mg/dL (NEGATIVE) Urine Ketones Negative mg/dL (NEGATIVE) Urine Blood Small (NEGATIVE) Urine Nitrite Negative (NEGATIVE) Urine Bilirubin Negative (NEGATIVE) Urine Urobilinogen Negative mg/dL (0.2-1.9) Urine Leukocyte Esterase Large (NEGATIVE) Urine RBC 5 /HPF (0-2/HPF) Urine WBC 11 /HPF (0-5/HPF) Urine Squamous Epithelial Cells Many /LPF (</=FEW) Urine Bacteria Few /HPF (NONE-FEW) Urine Hyaline Casts Many /LPF (NONE-FEW) Urine Mucus Few /HPF (NONE-FEW) ED Course/Re-evaluation ED Course ED course asocial female comes in with diarrhea and vomiting [address] scan shows some questionable concerns around the kidney structure repeat imaging showed cysts as opposed to hydronephrosis of the UTI and she does have enteritis we'll start her on antibiotics for the UTI and have her follow with primary care of fluid resuscitation initiated reservation relatively unremarkable Decision to Disposition Date: September 11, 2018 Decision to Disposition Time: 10:54 Depart Departure Latest Vital Signs Vital Signs Date Time Temp Pulse Resp B/P (MAP) Pulse Ox O2 Delivery O2 Flow Rate FiO2 09/11/18 09:06 128/66 (86) 09/11/18 08:30 89 19 91 09/11/18 07:13 2.0 09/11/18 06:44 100.1 Room Air Impression: Primary Impression: Gastroenteritis Additional Impression: UTI (urinary tract infection) Condition: Improved Disposition: HOME OR SELF-CARE Referrals: [facility] (PCP) 2 Days New Scripts Sulfamethoxazole/Trimet 800-160 Mg Tab (BACTRIM DS TABLET) 1 Each Tablet 1 TAB PO Q12H, #14 MG 0 Refills TAKE ONE TABLET BY MOUTH EVERY TWELVE HOURS Prov: FRANCISCO J MARTINEZ MD 09/11/18 Patient Instructions: Gastroenteritis (MILES), Urinary Tract Infection in Women (MILES) Problem Qualifiers FRANCISCO J MARTINEZ MD September 11, 2018 07:24
--- NOTE | 2018-09-11 08:16 | RADIOLOGY IMAGING REPORT ---
FACILITY: [facility] - [place] PATIENT NAME: Maren Salamanca : 1930 MR: [id number] V: [id number] EXAM DATE: ORDERING PHYSICIAN: FRANCISCO J MARTINEZ TECHNOLOGIST: Location: [facility] - [place] Patient: Maren Salamanca : 1930 Visit/Account:[id number] Date of Sevice: 09/11/2018 CHEST PA LAT HISTORY: Cough. Fever. COMPARISON: Chest x-ray August 10, 2014. FINDINGS: Cardiomediastinal contours: The heart size is normal. Lungs and pleura: There is subtle parenchymal density in the lateral aspect of the left lung base. Th is may not be significantly different when compared to previous exams. There is no definitive infiltr ate. There is mild hyperinflation of the lungs. Bones/soft tissues: Discogenic degenerative changes without osteopenia. IMPRESSION: 1. No definitive infiltrate. 2. Subtle blunting of the left lateral costophrenic sulcus that may be chronic in nature. Report Dictated By: Jeremy Reyes MD at 09/11/2018 8:08 AM Report E-Signed By: Jeremy Reyes MD at 09/11/2018 8:11 AM WSN:[id number]
--- NOTE | 2018-09-11 08:18 | RADIOLOGY IMAGING REPORT ---
FACILITY: [facility] - [place] PATIENT NAME: Maren Slaamanca : 1930 MR: [id number] V: [id number] EXAM DATE: ORDERING PHYSICIAN: FRANCISCO J MARTINEZ TECHNOLOGIST: Location: [facility] Patient: Maren Salamanca : 1930 Visit/Account:[id number] Date of Sevice: 09/11/2018 KUB SINGLE VIEW ABDOMEN History: Fever. Vomiting. Comparison study: None. Findings: There are no dilated loops of large or small bowel suggest ileus or obstruction. There is been a left total hip replacement. There are findings of superomedial joint space narrowing in the right hip. There is curvature of the lumbar spine with the convexity pointing to the right. There are prominent discogenic degenerative changes throughout the lumbar spine. IMPRESSION: 1. Nonspecific bowel gas pattern without findings of ileus or obstruction. 2. 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 3. Status post left total hip replacement. 4. Osteoarthrosis of the right hip. Report Dictated By: Jeremy Reyes MD at 09/11/2018 8:11 AM Report E-Signed By: Jeremy Reyes MD at 09/11/2018 8:12 AM WSN:[id number]
--- NOTE | 2018-09-11 09:25 | RADIOLOGY IMAGING REPORT ---
[place] [facility] [place] NAME: Maren Salamanca : 1930 MR: [id number] V: [id number] EXAM DATE: ORDERING PHYSICIAN: FRANCISCO J MARTINEZ TECHNOLOGIST: Location: [facility] - [place] Patient: Maren Salamanca : 1930 Visit/Account:[id number] Date of Sevice: 09/11/2018 ADDENDUM #1 ADDENDUM: Delayed images through the left kidney demonstrate the multiple hypodensities too in fact represent p arapelvic cysts as opposed to a left hydronephrosis Report Dictated By: Denise Sin MD at 09/11/2018 9:53 AM Report E-Signed By: Denise Sin MD at 09/11/2018 9:[address] ABDOMEN PELVIS W/ CON HISTORY: ab pain TECHNIQUE: Following administration of IV contrast contiguous axial images acquired through the abdom en/pelvis. Coronal and sagittal reformatting also performed.Dose Lowering Technique One of the following dose optimization techniques was utilized in the performance of this exam: Autom ated exposure control; adjustment of the mA and/or kV according to the patient's size; or use of an i terative reconstruction technique. Specific details can be referenced in the facility's radiology C T exam operational policy. CONTRAST: 75 mL [id number] COMPARISON: KUB performed today FINDINGS: Visualized lung bases: There is coarse linear stranding in the lung bases consistent with scarring v ersus atelectasis Hepatobiliary: Negative. Spleen: Negative. Adrenals: Negative. Pancreas: Negative. Kidneys ureters or bladder: Right kidney is not identified There is hydronephrosis versus parapelvic cysts in the left kidney however the former appears to be m ore likely. There are additional tiny hypoattenuating lesions within the left kidney which may repre sent tiny cysts although are too small to characterize. There are numerous artifacts in the pelvis f rom a left hip arthroplasty therefore pelvic contents not ideally evaluated Genitalia: There appears to been hysterectomy GI: There is diverticulosis of the left-sided colon although no definite evidence of acute diverticu litis. The right side of the colon is mildly distended with fluid. There is mild thickening enhance ment of multiple loops of small bowel predominantly within the pelvis. There is a small amount of ad jacent free pelvic fluid . There is a small hiatal hernia Vessels/spaces/nodes: There are at least moderate atherosclerotic calcifications throughout the abdo juwan aorta and branch vessels. There is mild fusiform dilatation of infrarenal abdominal aorta david uring approximately 2.5 x 2.3 cm. 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 There are spondylotic changes of the lumbar spine and a dextroconvex scoliosis Additional findings: None pertinent. IMPRESSION: There is mild thickening enhancement of multiple loops of small bowel predominantly within the pelvis with a small amount of adjacent free fluid just may represent enteritis. There is mild fluid disten tion of the right side of the colon although no evidence of colonic wall thickening Diverticulosis left-sided of the colon although no CT evidence of trey diverticulitis. There are nu merous streak artifacts in the pelvis from a left hip arthroplasty somewhat limiting evaluation of th e pelvis Right kidney is not identified. There is hydronephrosis versus parapelvic cysts in the left kidney h owever the former appears more likely. 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 Report Dict billy By: Denise Sin MD at 09/11/2018 9:04 AM Report E-Signed By: Denise Sin MD at 09/11/2018 9:20 AM WSN:[id number]
[2018-09-11 10:00] VITALS: BP 126/71
== END ==
LOC: ER 07:10
DX: K52.9 Noninfective gastroenteritis and colitis, unspecified (principal); N39.0 Urinary tract infection, site not specified; R19.7 Diarrhea, unspecified; R10.9 Unspecified abdominal pain; Z79.82 Long term (current) use of aspirin
CPT/HCPCS: 71046; 74018; 74177; 81001; 83605; 83690; 84484; 85025; 85610; 85730; 93005; 96361; 96374; 99284; G0480; J2405; J7030; Q9967; 80320; 82040; 82247; 82310; 82374; 82435; 82565; 82947; 84075; 84132; 84155; 84295; 84450; 84460; 84520

== ENCOUNTER → 2018-10-27 | Outpatient (CLI) | payer MEDICARE ==
[2017-11-10 11:05] VITALS: BMI 23.2
[~2018-10-27] MED LIST changes: +CLIN300C99 PO; -IOPAMIDOL 76% 100 ML INFUS BTL 100 ML ONE; -NS(*) 0.9% 1000 ML BAG 1,000 ML IV ONE; -ONDANSETRON 4 MG/2 ML VIAL IVP ONE; -ONDANSETRON 4 MG/2 ML VIAL ONE
== END ==
LOC: AMB 08:36
PROVIDERS: ATTEND Nurse Practitioner
DX: R06.02 Shortness of breath (principal); R06.2 Wheezing
CPT/HCPCS: A0425; A0427